=== PATIENT | female | born 1945 | race Caucasian/White ===

== ENCOUNTER 2018-05-08 06:35 | Day surgery (SDC) | payer MEDICARE, SELFPAY ==
[2018-05-08] MEDS: PROPARACAINE 0.5% OPHTH SOL 2 DROPS EYE-OP (07:52)
[2018-05-08 07:56] VITALS: BP 163/78; PULSE 73; RESP 16; TEMP 35.9; O2SAT 99
[2018-05-08 07:57] VITALS: BMI 28.5
[2018-05-08] MEDS: CATARACT EYE COMPOUND (10 DROPS/SYRINGE) 3 DROPS EYE-OP (07:57)
--- NOTE | 2018-05-08 08:53 | PM.PREOP ---
Pre-operative Note Interval Note History & Physical reviewed/Exam performed by Physician: No Changes to H&P: No
--- NOTE | 2018-05-08 08:53 | PM.OP.1 ---
Operative Date/Time/Diagnoses Pre-op diagnosis: Nuclear cataract right eye Procedure & Clinicians Procedure: Cataract Surgery Same procedure as scheduled: Yes Surgeon: Peter Celestin Anesthesia Type: MAC +/- and Sedation Operative Notes Procedure in detail: Patient brought to the operating suite. Tetracaine drops placed in the right eye. Patient was prepped and draped in sterile manner. Wire lid speculum was placed in the eye. Betadine drops were placed on the eye. This was irrigated. Lidocaine jelly was placed on the eye. A paracentesis port was created with a side-port blade. 0.1 mL 1% preservative free lidocaine was injected into the anterior chamber. The anterior chamber was deepened with viscoelastic. 2.6 mm keratome was used to create a temporal clear corneal incision. Cystotome and Utrata forceps were used to create continuous tear capsulorrhexis. Balanced salt solution was used to hydro dissect the nucleus. The phacoemulsification handpiece was inserted and the nucleus was removed using the stop and chop technique. The irrigation aspiration handpiece was inserted and the remaining cortex was removed. Anterior chamber was deepened with viscoelastic. An Freedman ZCB00 intraocular lens with a power of 16.5 was injected into the capsular bag. Irrigation aspiration handpiece was inserted and the remaining viscoelastic was removed. Incision was hydrated with balanced salt solution and found to be leak free with pressure with Weck-Nataly sponges. 0.1 mL Vigamox injected anterior chamber. 0.3 mL Kenalog 10 mg was injected subconjunctivally. Lid speculum was removed. The patient left the operating room in excellent condition. Complications: none Condition: stable Disposition: same day surgery
[2018-05-08] MEDS: MOXIFLOXACIN OPHTH DROPS 3 ML BOTTLE 2 DROPS INJ (09:09)
[2018-05-08] MEDS: TRIAMCINOLONE 50 MG/5 ML VIAL INJ (09:09)
[2018-05-08] MEDS: PHENYLEPHRINE/LIDOCAINE VIAL (OR) 0.2 ML EYE-OP (09:09)
[2018-05-08] MEDS: CHONDROIDTIN/SOD HYALURONATE 1.05 ML SYRINGE INTRAOCULA (09:10)
[2018-05-08] MEDS: LIDOCAINE JELLY 2% 5 ML 1 APPLIC TOP (09:10)
[2018-05-08] MEDS: TETRACAINE 0.5% OPHTH DROPS 4 ML 2 DROPS EYE-OP (09:10)
[2018-05-08] MEDS: BALANCED SALT IRRIG SOLN NO.2 500 ML, EPINEPHrine 1 MG IRR (09:10)
[2018-05-08 09:30] VITALS: BP 153/74; PULSE 68; RESP 16; TEMP 36.4; O2SAT 100
== END 2018-05-08 09:35 | disposition home or self-care (01) ==
PROVIDERS: PCP Internal Medicine; Visit Provider Ophthalmology
DX: H25.11 Age-related nuclear cataract, right eye (principal)
CPT/HCPCS: J0171; J2250; J3010; J3301

== ENCOUNTER 2018-06-05 11:29 | Day surgery (SDC) | payer MEDICARE, SELFPAY ==
[2018-06-05] MEDS: PROPARACAINE 0.5% OPHTH SOL 2 DROPS EYE-OP (12:36)
[2018-06-05 12:37] VITALS: BMI 28.4
[2018-06-05] MEDS: CATARACT EYE COMPOUND (10 DROPS/SYRINGE) 3 DROPS EYE-OP (12:43)
[2018-06-05 12:50] VITALS: BP 143/77; PULSE 69; RESP 16; TEMP 36.8; O2SAT 99
--- NOTE | 2018-06-05 13:17 | PM.PREOP ---
Pre-operative Note Interval Note History & Physical reviewed/Exam performed by Physician: No Changes to H&P: No
--- NOTE | 2018-06-05 13:18 | PM.OP.1 ---
Operative Date/Time/Diagnoses Pre-op diagnosis: Nuclear Cataract Left eye Post-op diagnosis: same Procedure & Clinicians Surgeon: Peter Celestin Anesthesia Type: MAC +/- and Sedation Operative Notes Procedure in detail: Patient brought to the operating suite. Tetracaine drops placed in the left eye. Patient was prepped and draped in sterile manner. Wire lid speculum was placed in the eye. Betadine drops were placed on the eye. This was irrigated. Lidocaine jelly was placed on the eye. A paracentesis port was created with a side-port blade. 0.1 mL 1% preservative free lidocaine was injected into the anterior chamber. The anterior chamber was deepened with viscoelastic. 2.6 mm keratome was used to create a temporal clear corneal incision. Cystotome and Utrata forceps were used to create continuous tear capsulorrhexis. Balanced salt solution was used to hydro dissect the nucleus. The phacoemulsification handpiece was inserted and the nucleus was removed using the stop and chop technique. The irrigation aspiration handpiece was inserted and the remaining cortex was removed. Anterior chamber was deepened with viscoelastic. An Freedman ZCB00 intraocular lens with a power of 17.5 was injected into the capsular bag. Irrigation aspiration handpiece was inserted and the remaining viscoelastic was removed. Incision was hydrated with balanced salt solution and found to be leak free with pressure with Weck-Nataly sponges. 0.1 mL Vigamox injected anterior chamber. 0.3 mL Kenalog 10 mg was injected subconjunctivally. Lid speculum was removed. The patient left the operating room in excellent condition. Complications: none Condition: stable Disposition: same day surgery
[2018-06-05] MEDS: LIDOCAINE JELLY 2% 5 ML 1 APPLIC TOP (13:35)
[2018-06-05] MEDS: MOXIFLOXACIN OPHTH DROPS 3 ML BOTTLE 2 DROPS INJ (13:35)
[2018-06-05] MEDS: CHONDROIDTIN/SOD HYALURONATE 1.05 ML SYRINGE INTRAOCULA (13:35)
[2018-06-05] MEDS: TETRACAINE 0.5% OPHTH DROPS 4 ML 2 DROPS EYE-OP (13:36)
[2018-06-05] MEDS: PHENYLEPHRINE/LIDOCAINE VIAL (OR) 0.2 ML EYE-OP (13:36)
[2018-06-05] MEDS: TRIAMCINOLONE 50 MG/5 ML VIAL INJ (13:36)
[2018-06-05] MEDS: BALANCED SALT IRRIG SOLN NO.2 500 ML, EPINEPHrine 1 MG IRR (13:37)
[2018-06-05 13:45] VITALS: BP 129/76; PULSE 74; RESP 20; TEMP 36.6; O2SAT 100
== END 2018-06-05 14:00 | disposition home or self-care (01) ==
LOC: OR 11:31
PROVIDERS: PCP Internal Medicine; Visit Provider Ophthalmology
DX: H25.12 Age-related nuclear cataract, left eye (principal)
CPT/HCPCS: J0171; J2250; J3301

== ENCOUNTER → 2018-06-29 08:50 | Outpatient (CLI) | payer MEDICARE, SELFPAY ==
[2018-06-29 10:29] LABS: Alanine Aminotransferase 22 IU/L (9-52); Albumin 4.1 g/dL (3.5-5.0); Albumin Globulin Ratio 1.8 (1.0-2.8); Alkaline Phosphatase 91 U/L (38-126); Aspartate Aminotransferase 16 IU/L (14-36); BUN Creatinine Ratio 28.8 (6-22); Bilirubin Total 0.3 mg/dL (0.2-1.3); Blood Urea Nitrogen 23 mg/dL (7-17); Calcium 9.9 mg/dL (8.4-10.2); Carbon Dioxide 29 mmol/L (22-32); Chloride 104 mmol/L (98-107); Cholesterol 139 mg/dL (140-199); Estimated Glomerular Filt Rate > 60.0 mL/min (>60); Globulin 2.3 g/dL (1.7-4.1); Glucose 76 mg/dL (80-110); HDL Cholesterol 59 mg/dL (40-60); HEMOLYSIS < 15 (0-50); LDL Cholesterol Calculated 67 mg/dL (<100); Potassium 4.8 mmol/L (3.4-5.1); Sodium 141 mmol/L (137-145); Total Protein 6.4 g/dL (6.3-8.2); Triglycerides 63 mg/dL (35-150)
== END ==
PROVIDERS: PCP Internal Medicine; Visit Provider Internal Medicine
DX: E78.5 Hyperlipidemia, unspecified (principal); I10 Essential (primary) hypertension
CPT/HCPCS: 36415; 80053; 80061

== ENCOUNTER 2019-01-13 13:46 | Emergency (ER) | payer MEDICARE, SELFPAY ==
[2019-01-13 14:13] VITALS: BP 118/74; PULSE 78; RESP 16; TEMP 36.1; O2SAT 97; BMI 29.3
--- NOTE | 2019-01-13 14:20 | DI.RAD.S_ITS ---
PROCEDURE: XR ANKLE LT MIN 3V INDICATIONS: pain TECHNIQUE: 3 views of the ankle were acquired. COMPARISON: [facility], , ANKLE 3 VIEWS RIGHT, 08/28/2013, 13:17. FINDINGS: Bones: No acute appearing fractures. However, there is loss of bone along the superolateral talar dome which appears new since 2014 and is likely sequela of interval osteochondral defect with displacement of the involved piece of bone into the joint space. Severe degenerative changes of the tibiotalar joint and subtalar joint are again noted as seen in 2014. Plantar spur is present. Soft tissues: Tibiotalar joint is distended due to the presence of numerous large intra-articular loose bodies. Achilles tendon appears normal. IMPRESSION: No radiographic evidence of acute bony abnormality. Severe degenerative changes of the tibiotalar and subtalar joint with a large osteochondral defect of the superolateral talar dome, likely remote, though new appearing since 2013. Numerous large intra-articular tibiotalar loose bodies. Dictated by: Chris Arzate M.D. on 01/13/2019 at 13:35 Approved by: Chris Arzate M.D. on 01/13/2019 at 13:39
--- NOTE | 2019-01-13 15:56 | PC.NURSE ---
pt reports left leg pain with wt bearings.
--- NOTE | 2019-01-13 19:43 | ED_ITS ---
HPI - Extremity Injury (Lower) <GABY Pizano - Last Filed: 01/13/19 19:49> General Chief Complaint: Extremity Injury, Lower Stated Complaint: severe osteoarthritis in ankles, hurt left ankle Time Seen by Provider: 01/13/19 15:16 Source: patient Mode of arrival: Wheelchair Limitations: no limitations History of Present Illness HPI Narrative: The patient is a 73-year-old female nonsmoker with history of osteoarthritis in her ankles who presents with a chief complaint of left ankle pain that has been worsening over the past few days. She denies any precipitating factors, but states that she had worsening pain and kept ambulating on it yesterday. She states that the pain is on the inside of her ankle. She denies any current redness or swelling. She denies any chest pain shortness of breath fevers nausea vomiting or diarrhea. She has not taken anything for pain at this point. She states that it has been increasingly difficult to bear weight due to the pain. She states she knows she has [id number] arthritis on her left ankle. Related Data Home Medications Medication Instructions Recorded Confirmed quetiapine 25 mg tablet 50 mg PO ONCE HS tab 01/02/19 01/02/19 Previous Rx's Medication Instructions Recorded diazepam 2 mg tablet 2 mg PO .hsp PRN #90 tab 08/01/17 simvastatin 20 mg PO Q DAY #90 tab 06/26/18 Disabled Parking #1 each 07/03/18 mirabegron 25 mg tablet,extended 25 mg PO DAILY #90 tab 07/31/18 release 24 hr diclofenac sodium 100 mg 100 mg PO BID #180 tab 11/15/18 tablet,extended release 24 hr fluoxetine 20 mg capsule 20 mg PO DAILY #10 cap 12/04/18 fluoxetine 20 mg capsule 20 mg PO DAILY #90 cap 12/04/18 Allergies Allergy/AdvReac Type Severity Reaction Status Date / Time adhesive tape Allergy Unknown peeled skin Verified 01/02/19 15:06 Review of Systems <GABY Pizano - Last Filed: 01/13/19 19:49> Review of Systems Narrative: GENERAL: Denies chills, fatigue, malaise, fever, sweats. HEENT: Denies sinus pain, ear pain, sore throat, difficulty swallowing, dizziness. RESPIRATORY: Denies dyspnea, cough, wheezing, hemoptysis, sputum. CARDIOVASCULAR: Denies chest pain, palpitations, orthopnea, edema, GASTROINTESTINAL: Denies nausea, vomiting, abdominal pain, diarrhea, constipation, melena. : Denies dysuria, frequency, incontinence, hematuria, urinary retention. MUSCULOSKELETAL: See HPI SKIN: Denies rash, skin lesions, or other NEUROLOGIC: Denies weakness, headache, numbness, change in speech, confusion, seizures, incoordination. PSYCHIATRIC: No concerning psychosocial issues. 12 point review of systems is negative except for those stated above Patient History <GABY Pizano - Last Filed: 01/13/19 19:49> Medical History Eating disorder (Resolved) Hyperlipidemia (Chronic 05/17/17) Hypertension (Chronic) Major depression (Chronic) Surgical History S/P cataract extraction (Inactive ~04/2018) Family History Child Pancreatitis Father Fam hx-ischem heart disease Social History household members: spouse Smoking Status: Never smoker Family History Child Pancreatitis Father Fam hx-ischem heart disease Social History household members: spouse Smoking Status: Never smoker alcohol intake frequency: holidays/special occasions only Substance Use Type: does not use Exam <GABY Pizano - Last Filed: 01/13/19 19:49> Narrative Exam Narrative: GENERAL: Elderly female sitting on stretcher in no acute distress HEAD: Atraumatic. Normocephalic. No temporal or scalp tenderness. EYES: Pupils equal round and reactive. Extraocular motions intact. No scleral icterus. No injection or drainage. ENT: Nose without bleeding, purulent drainage or septal hematoma. Throat without erythema, tonsillar hypertrophy or exudate. Uvula midline. Airway patent. NECK: Trachea midline. No JVD or lymphadenopathy. Supple, nontender, no meningeal signs. CARDIOVASCULAR: Regular rate and rhythm RESPIRATORY: No cough. No increased respiratory effort. No accessory muscle use. EXTREMITIES: Generalized pain to palpation lateral aspect left ankle. Positive pedal pulses bilaterally. Capillary refill less than 2 seconds bilaterally all toes. Reduced range of motion all bowman. No visual skin abnormality left ankle or foot. BACK: Nontender without deformity or crepitance. No flank tenderness. NEURO: AOx3. SKIN: No rash or erythema visible skin. No erythema ecchymosis warmth or visual abnormality noted on left ankle. Initial Vital Signs Initial Vital Signs: Vital Signs Temperature 97.0 F L 01/13/19 14:13 Pulse Rate 78 01/13/19 14:13 Respiratory Rate 16 01/13/19 14:13 Blood Pressure 118/74 01/13/19 14:13 Pulse Oximetry 97 01/13/19 14:13 <Anum Colón MD - Last Filed: 01/13/19 19:53> Initial Vital Signs Initial Vital Signs: Vital Signs Temperature 97.0 F L 01/13/19 14:13 Pulse Rate 78 01/13/19 14:13 Respiratory Rate 16 01/13/19 14:13 Blood Pressure 118/74 01/13/19 14:13 Pulse Oximetry 97 01/13/19 14:13 Procedures <GABY Pizano - Last Filed: 01/13/19 19:49> Orthopedic Splinting/Casting Injury #1: Side: left Lower Extremity Injury Location: ankle Lower Extremity Immobilizer: boot orthosis Other Orthopedic Equipment: walker Post splinting neuro exam: intact Post splinting vascular exam: intact Placed by: Nursing Scores <GABY Pizano - Last Filed: 01/13/19 19:49> GCS Jacklyn coma scale eye opening: Spontaneous Jacklyn coma scale verbal response: Orientated Jacklyn coma scale motor response: Obey commands Jacklyn coma scale total score: 15 Wells' Criteria for DVT Active Cancer (Treatment within 6 months): No Bedridden recently >3 days or major surgery within 4 weeks: No Calf Swelling >3cm compared to other leg: No Collateral (nonvericose) superficial veins present: No Entire leg swollen: No Localized tenderness along the deep vein system: No Pitting edema, confined to symtomatic leg: No Paralysis, paresis, or recent plaster immobilization of ext: No Previously documented DVT: No Alternative dx to DVT as likely or more likely: No Wells' criteria for DVT: 0 Course <GABY Pizano - Last Filed: 01/13/19 19:49> Orders Ordered: ED Orders 01/13/19 14:20 XR ankle LT min 3V Stat Vital Signs Vital signs: Vital Signs - 8 hr 01/13/19 14:13 Temperature 97.0 F L Pulse Rate 78 Respiratory Rate 16 Blood Pressure 118/74 Pulse Oximetry 97 <Anum Colón MD - Last Filed: 01/13/19 19:53> Orders Ordered: ED Orders 01/13/19 14:20 XR ankle LT min 3V Stat Vital Signs Vital signs: Vital Signs - 8 hr 01/13/19 14:13 Temperature 97.0 F L Pulse Rate 78 Respiratory Rate 16 Blood Pressure 118/74 Pulse Oximetry 97 MDM - Extremity Injury (Lower) <GABY Pizano - Last Filed: 01/13/19 19:49> Imaging Data Ankle x-ray: Radiologist's impression: [address] [address] XRay Report Signed Patient: Cornelia Marx [facility]#: [id number] : 5Acct:[id number] Age/Sex: 73 / FDate of Service: 01/13/19 Loc: ED Accession Number: [id number] Procedure: XR ankle LT min 3V Ordering Provider: Anum Colón MD PROCEDURE: XR ANKLE LT MIN 3V INDICATIONS: pain TECHNIQUE: 3 views of the ankle were acquired. COMPARISON: [facility], , ANKLE 3 VIEWS RIGHT, 08/28/2013, 13:17. FINDINGS: Bones: No acute appearing fractures. However, there is loss of bone along the superolateral talar dome which appears new since 2013 and is likely sequela of interval osteochondral defect with displacement of the involved piece of bone into the joint space. Severe degenerative changes of the tibiotalar joint and subtalar joint are again noted as seen in 2014. Plantar spur is present. Soft tissues: Tibiotalar joint is distended due to the presence of numerous large intra-articular loose bodies. Achilles tendon appears normal. IMPRESSION: No radiographic evidence of acute bony abnormality. Severe degenerative changes of the tibiotalar and subtalar joint with a large osteochondral defect of the superolateral talar dome, likely remote, though new appearing since 2013. Numerous large intra-articular tibiotalar loose bodies. Dictated by: Chris Arzate M.D. on 01/13/2019 at 13:35 Approved by: Chris Arzate M.D. on 01/13/2019 at 13:39 [facility] Narrative Medical decision making narrative: The patient is a 73-year-old female presents with a chief complaint of ankle pain. She has history of osteoarthritis and states she may have ?overdone it the other day. She has negative x-rays for acute findings, but is noted to have large intra-articular tibiotalar loose bodies as well as degenerative changes. She has no signs of cellulitis or blood clot. She has no systemic symptoms. I discussed at length the importance of follow-up with primary care provider. She was placed in a boot given a walker and was able to ambulate steadily with a combination of the 2. I discussed at length coming back to the emergency department for any acute findings such as concern for DVT or sinusitis. Patient has no questions or concerns and states understanding of return precautions as well as plan of care. Discharge Plan Departure Patient Disposition: Home Clinical Impression: Acute ankle pain Qualifiers: Laterality: left Qualified Code(s): M25.572 - Pain in left ankle and joints of left foot Discharge Date/Time: 01/13/19 16:26 Instructions: How To Perform RICE (Rest, Ice, Compress, Elevate), DI for Ankle Pain Activity Restrictions/Additional Instructions: Your x-ray shows no acute fractures, but shows severe degenerative changes and intra-articular loose bodies. We have placed you in a boot for comfort, and this has decreased your pain and increased your stability. We have also offered you a walker. Please monitor for redness, warmth, fevers signs of infection etc. Please come back to the emergency department for any acute concerns. Please follow up with primary care provider in the next few days. Prescriptions: No Action quetiapine 25 mg tablet 50 mg PO ONCE HS RF: 0 fluoxetine [Prozac] 20 mg capsule 20 mg PO DAILY Qty: 10 RF: 0 fluoxetine [Prozac] 20 mg capsule 20 mg PO DAILY Qty: 90 RF: 3 diazepam 2 mg tablet 2 mg PO .hsp PRN (Reason: anxiety) Qty: 90 RF: 1 simvastatin 20 mg tablet 20 mg PO Q DAY Qty: 90 RF: 3 Myrbetriq 25 mg tablet extended release 24 hr 25 mg PO DAILY Qty: 90 RF: 3 diclofenac sodium 100 mg tablet extended release 24 hr 100 mg PO BID Qty: 180 RF: 3 (DME) Disabled Parking Qty: 1 RF: 0 Referrals: Hay Cary MD [Primary Care Provider] -
== END 2019-01-13 16:26 | disposition home or self-care (01) ==
PROVIDERS: Emergency Provider Nurse Practitioner Family; PCP Internal Medicine
DX: M25.572 Pain in left ankle and joints of left foot (principal); M19.079 Primary osteoarthritis, unspecified ankle and foot
CPT/HCPCS: 29580; 73610; 99282; 99283

== ENCOUNTER → 2019-08-09 11:02 | Outpatient (CLI) | payer MEDICARE, SELFPAY ==
[2019-08-09 12:18] LABS: Alanine Aminotransferase 14 IU/L (<35); Albumin Globulin Ratio 1.6 (1.0-2.8); Alkaline Phosphatase 117 U/L (38-126); Aspartate Aminotransferase 24 IU/L (14-36); BUN Creatinine Ratio 21.9 (6-22); Bilirubin Total 0.4 mg/dL (0.2-1.3); Blood Urea Nitrogen 14 mg/dL (7-17); Calcium 9.6 mg/dL (8.4-10.2); Carbon Dioxide 29 mmol/L (22-32); Chloride 103 mmol/L (98-107); Cholesterol 150 mg/dL (140-199); Estimated Glomerular Filt Rate > 60.0 mL/min (>60); Globulin 2.5 g/dL (1.7-4.1); Glucose 96 mg/dL (80-110); HDL Cholesterol 58 mg/dL (40-60); HEMOLYSIS < 15 (0-50); LDL Cholesterol Calculated 73 mg/dL (<100); Potassium 4.2 mmol/L (3.4-5.1); Sodium 139 mmol/L (137-145); Total Protein 6.5 g/dL (6.3-8.2); Triglycerides 96 mg/dL (35-150)
== END ==
PROVIDERS: PCP Internal Medicine; Referring Provider Internal Medicine; Visit Provider Internal Medicine
DX: I10 Essential (primary) hypertension (principal); E78.5 Hyperlipidemia, unspecified; Z79.899 Other long term (current) drug therapy
CPT/HCPCS: 36415; 80053; 80061; 84443

== ENCOUNTER → 2019-12-11 11:19 | Outpatient (CLI) | payer MEDICARE, SELFPAY ==
--- NOTE | 2019-12-11 11:20 | DI.RAD.S_ITS ---
PROCEDURE: XR FINGER RT MIN 2V INDICATIONS: R FINGER PAIN TECHNIQUE: AP hand, 2 views of the 4th digit acquired. COMPARISON: None. FINDINGS: Bones: There is a small avulsion fragment dorsal to the 4th proximal interphalangeal joint likely originating from the base of the middle phalanx. No other fracture or dislocation. Visualized osseous structures appear osteopenic. There is severe degeneration at the 1st carpometacarpal joint and moderate degeneration at the triscaphe articulation. There is also mild degeneration of the distal interphalangeal joints. Soft tissues: There is mild periarticular soft tissue swelling most prominent dorsally at the 4th proximal phalangeal joint. IMPRESSION: 1. Small ossicle dorsal to the 4th PIP joint with associated soft tissue swelling suggestive of a small avulsion fracture. 2. Osteoarthritic changes of the hand as described including severe degeneration at the 1st carpometacarpal joint. Dictated by: Messi Kaye M.D. on 12/11/2019 at 11:57 Approved by: Messi Kaye M.D. on 12/11/2019 at 12:00
== END ==
PROVIDERS: PCP Internal Medicine; Referring Provider Physician Assistant; Visit Provider Physician Assistant
DX: M79.644 Pain in right finger(s) (principal); M18.11 Unilateral primary osteoarthritis of first carpometacarpal joint, right hand; M19.041 Primary osteoarthritis, right hand; M79.89 Other specified soft tissue disorders
CPT/HCPCS: 73140

== ENCOUNTER 2019-12-13 08:48 | Emergency (ER) | payer MEDICARE, SELFPAY ==
[2019-12-13 08:53] VITALS: BP 179/107; PULSE 72; RESP 12; TEMP 36.6; O2SAT 98; BMI 29.7
--- NOTE | 2019-12-13 09:01 | ED.WOUNDLAC ---
HPI - Wound/Laceration General Chief Complaint: Wound/Laceration Stated Complaint: finger on right hand infected Time Seen by Provider: 12/13/19 08:54 Source: patient Mode of arrival: Ambulatory Limitations: no limitations History of Present Illness HPI narrative: Patient is 74-year-old female who presents with about 1 week to 10 days of redness the distal end of her right ring finger. She has had a recurrent sore over the last 10 years however now the entire and of her he D IP is erythematous. She has tried poking it with a pin she got some pus out. She was seen at the walk-in clinic 2 days ago she was placed on Keflex she has had 5 doses total of Keflex. Last night she had some aching in her MCP along her finger this morning she woke up and noticed erythema down to her PIP however that erythema has resolved on my examination. She has no fevers she is able to flex and extend finger completely. She has no streaking. X-ray from the does show questionable of avulsion fracture and arthritic changes. Related Data Home Medications Medication Instructions Recorded Confirmed multivitamin 1 cap PO DAILY 04/01/19 12/11/19 Previous Rx's Medication Instructions Recorded Disabled Parking #1 each 07/03/18 diazepam 2 mg tablet 2 mg PO .hsp PRN #90 tab 05/21/19 simvastatin 20 mg tablet 20 mg PO Q DAY #90 tab 07/10/19 bupropion HCl 150 mg 24 hr tablet, 150 mg PO QAM #90 tab 08/08/19 extended release diclofenac sodium 100 mg 100 mg PO BID #180 tab 11/12/19 tablet,extended release 24 hr olmesartan 20 mg tablet 20 mg PO DAILY #90 tab 11/25/19 cephalexin 500 mg capsule 500 mg PO TID 10 Days #30 cap 12/11/19 doxycycline hyclate 100 mg PO BID #14 cap 12/13/19 Allergies Allergy/AdvReac Type Severity Reaction Status Date / Time adhesive tape Allergy Unknown peeled skin Verified 12/13/19 08:57 Review of Systems Review of Systems Narrative: GENERAL: Denies chills,fever HEENT: Denies throat pain RESPIRATORY: Denies dyspnea, cough, wheezing CARDIOVASCULAR: Denies chest pain, palpitations GASTROINTESTINAL: Denies nausea, vomiting MUSCULOSKELETAL: Denies extremity pain, injury SKIN: See HPI NEUROLOGIC: Denies weakness, dizziness, headache, numbness 8 point review of systems is negative except for those stated above and HPI Patient History Medical History Eating disorder (Resolved) Hyperlipidemia (Chronic 05/17/17) Hypertension (Chronic) Major depression (Chronic) Osteoarthritis of ankles, bilateral (Chronic) Surgical History S/P cataract extraction (Inactive ~04/2018) Family History Child Pancreatitis Father Fam hx-ischem heart disease Social History household members: spouse Smoking Status: Never smoker Smoking Status: Never smoker alcohol intake frequency: holidays/special occasions only Substance Use Type: does not use Exam Initial Vital Signs Initial Vital Signs: Vital Signs Temperature 97.8 F 12/13/19 08:53 Pulse Rate 72 12/13/19 08:53 Respiratory Rate 12 12/13/19 08:53 Blood Pressure 179/107 H 12/13/19 08:53 Pulse Oximetry 98 12/13/19 08:53 GENERAL: Well-appearing, well-nourished and in no acute distress. CARDIOVASCULAR: peripheral pulses in tact, cap refill <2 sec RESPIRATORY: No respiratory distress, speaks in full sentences without difficulty EXTREMITIES: Normal range of motion, no clubbing or edema. Neurovascularly intact NEUROLOGICAL: Cranial nerves II through XII grossly intact. Normal gait and speech. SKIN: Small pustule noted at the distal end of right ring finger over the D IP. No drainage minimal fluctuation no induration erythema is localized around the D IP it does not extend to the PIP there is no streaking patient able to flex and extend finger it is mildly painful to touch. Course Vital Signs Vital signs: Vital Signs - 8 hr 12/13/19 08:53 Temperature 97.8 F Pulse Rate 72 Respiratory Rate 12 Blood Pressure 179/107 H Pulse Oximetry 98 MDM - Wound/Laceration MDM Narrative Medical decision making narrative: At this time no sign of flexor tenosynovitis no sign of osteo myelitis. At this time recommend warm soaks and switch antibiotics. Discharge Plan Departure Patient Disposition: Home Clinical Impression: Cellulitis of right ring finger Instructions: DI for Cellulitis -- Adult Activity Restrictions/Additional Instructions: *You have been diagnosed with right ring finger cellulitis *What to do: At this time I recommend warm soaks 1 to 2 times a day for 10 or 20 minutes. Monitor closely for worsening redness. *Continue to take medications as directed Stop taking Keflex Start taking Bactrim 100 mg twice a day for 7 days--> [facility] [place] [facility] *Follow up with your primary care provider in 2-3 days *Return to ER if you should have increasing redness, inability to bend finger, streaking up the hand fever [or] any new, worsening or concerning symptoms Prescriptions: New doxycycline hyclate 100 mg capsule 100 mg PO BID Qty: 14 RF: 0 No Action cephalexin 500 mg capsule 500 mg PO TID 10 Days Qty: 30 RF: 0 multivitamin Capsule 1 cap PO DAILY RF: 0 bupropion HCl 150 mg tablet extended release 24 hr 150 mg PO QAM Qty: 90 RF: 3 simvastatin 20 mg tablet 20 mg PO Q DAY Qty: 90 RF: 3 diclofenac sodium 100 mg tablet extended release 24 hr 100 mg PO BID Qty: 180 RF: 3 olmesartan 20 mg tablet 20 mg PO DAILY Qty: 90 RF: 3 (DME) Disabled Parking Qty: 1 RF: 0 diazepam 2 mg tablet 2 mg PO .hsp PRN (Reason: anxiety) Qty: 90 RF: 1 Referrals: Hay Cary MD [Primary Care Provider] -
--- NOTE | 2019-12-13 09:01 | PC.NURSE ---
Pain, redness and swelling to right ring finger. Started Monday. Denies fevers or chills. Small dark head noted to area of finger. Denies drainage.
== END 2019-12-13 09:31 | disposition home or self-care (01) ==
PROVIDERS: Emergency Provider Emergency Medicine; PCP Internal Medicine
DX: L03.011 Cellulitis of right finger (principal)
CPT/HCPCS: 99281

== ENCOUNTER 2020-02-20 02:08 | Emergency (ER) | payer MEDICARE, SELFPAY ==
[2020-02-20 02:17] VITALS: BP 136/82; PULSE 83; RESP 16; TEMP 36.8; O2SAT 96; BMI 28.5
--- NOTE | 2020-02-20 02:18 | ED.GENADULT ---
HPI - General Adult General Chief complaint: Extremity Problem,Nontraumatic Stated complaint: PAINFUL SPOT ON LEFT ELBOW X2 DAYS Time Seen by Provider: 02/20/20 02:18 History of Present Illness HPI narrative: 74-year-old woman with a history of hypertension, hyperlipidemia and osteoarthritis presents with 2 days of increasing pain and swelling over her left elbow. She denies specific trauma. There is no specific redness or cellulitis. She has not been doing any new or different activity and denies fevers or chills. Related Data Home Medications Medication Instructions Recorded Confirmed multivitamin 1 cap PO DAILY 04/01/19 01/13/20 lisinopril 20 mg tablet 20 mg PO DAILY tab 01/13/20 01/13/20 Previous Rx's Medication Instructions Recorded Disabled Parking #1 each 07/03/18 diazepam 2 mg tablet 2 mg PO .hsp PRN #90 tab 05/21/19 simvastatin 20 mg tablet 20 mg PO Q DAY #90 tab 07/10/19 bupropion HCl 150 mg 24 hr tablet, 150 mg PO QAM #90 tab 08/08/19 extended release diclofenac sodium 100 mg 100 mg PO BID #180 tab 11/12/19 tablet,extended release 24 hr oxycodone-acetaminophen 1 tab PO Q6H PRN #10 tab 02/20/20 Allergies Allergy/AdvReac Type Severity Reaction Status Date / Time adhesive tape Allergy Unknown peeled skin Verified 02/20/20 02:39 lisinopril AdvReac Intermediate cough Verified 02/20/20 02:39 Review of Systems Review of Systems Narrative: Pertinent positive and negative findings as per HPI Remainder of review of systems is otherwise unremarkable for Constitutional: weakness ENT: No sore throat, neck pain, ear pain CV: Chest pain, palpitations, dyspnea on exertion Respiratory: Cough, wheeze, dyspnea GI: Nausea, vomiting, diarrhea, change in bowel habits, black or bloody stools : Dysuria, hematuria, flank pain MS: Muscle weakness, numbness, Patient History Medical History Eating disorder Hyperlipidemia (05/17/17) Hypertension Major depression Osteoarthritis of ankles, bilateral Raynauds phenomenon Surgical History S/P cataract extraction (~04/2018) Family History Child Pancreatitis Father Fam hx-ischem heart disease Social History household members: spouse Smoking Status: Never smoker Smoking Status: Never smoker alcohol intake frequency: holidays/special occasions only Substance Use Type: does not use Exam Narrative Exam Narrative: General: Alert appropriate in no acute distress Respiratory: Able to speak in full sentences, no obvious respiratory distress, lungs are clear to auscultation Cardiac exam: Regular rate and rhythm no murmurs Skin: No obvious rashes, warm and dry Extremities: Active synovitis right hand 4th finger DIP joint. Left elbow with bursal fullness that is not tense nor red nor warm to the touch. Full range of motion at the elbow. No axillary adenopathy. Neurovascularly intact distal. Psych, appropriate insight and affect, cooperative Initial Vital Signs Initial Vital Signs: Vital Signs Temperature 98.2 F 02/20/20 02:17 Pulse Rate 83 02/20/20 02:17 Respiratory Rate 16 02/20/20 02:17 Blood Pressure 136/82 02/20/20 02:17 Pulse Oximetry 96 02/20/20 02:17 Course Orders Ordered: Discontinued Medications Oxycodone/Acetaminophen (Oxycodone/Acetaminophen 5/325 Tablet) 1 tab PO NOW ONE Stop: 02/20/20 02:40 Oxycodone/Acetaminophen (Oxycodone/Apap 5/325 Prepack) 1 bottle MISC SEEINSTR ONE Stop: 02/20/20 02:40 Vital Signs Vital signs: Vital Signs - 8 hr 02/20/20 02:17 Temperature 98.2 F Pulse Rate 83 Respiratory Rate 16 Blood Pressure 136/82 Pulse Oximetry 96 Medical Decision Making Medical Records Medical records reviewed: Yes I reviewed the patient's medical records. MDM Narrative Medical decision making narrative: 74-year-old woman with a left-sided olecranon bursitis. No evidence of infection or trauma at this point. She has not had prior episodes of gout and currently does have diclofenac at home to use for her osteoarthritis of various joints. Will ask her to go back to the diclofenac that she has not taken for the last week or so and will add Percocet for severe pain such as she has experienced this evening. Will ask her follow-up with her primary care physician in about a week to make sure that she truly is improving or see if additional referral will be appropriate. Encouraged to return to the emergency department with any signs or symptoms of infection she is safe for home discharge Discharge Plan Departure Patient Disposition: Home Clinical Impression: Bursitis, olecranon Qualifiers: Laterality: left Qualified Code(s): M70.22 - Olecranon bursitis, left elbow Instructions: DI for Elbow Bursitis Activity Restrictions/Additional Instructions: Thank you for coming in tonight. It is so frustrating when your hurting so much. Please go back to taking your 100 mg of diclofenac morning and night while your elbow is as inflamed as it currently is. You can add 1 Percocet every 6 hours for pain not controlled by the diclofenac. Any time that you take a narcotic pain pill you will have difficulties with constipation. Please make sure that you are adding either a stool softener or extra fiber to your diet to avoid this side effect. At this time, there is not any suggestion of infection. If the area becomes more swollen, more tense, red or you have redness extending from it then we certainly need to re-evaluate and might need to collect some of the fluid to figure out how to best treat this. Use the sling for comfort. Please schedule follow-up appointment for this elbow bursitis with Dr. Cary in about a week. It is not improved by then he may have other suggestions for further workup. I hope you feel better and are able to get some sleep this evening. Prescriptions: New oxycodone-acetaminophen 5-325 mg tablet 1 tab PO Q6H PRN (Reason: pain) Qty: 10 RF: 0 No Action multivitamin Capsule 1 cap PO DAILY RF: 0 bupropion HCl 150 mg tablet extended release 24 hr 150 mg PO QAM Qty: 90 RF: 3 simvastatin 20 mg tablet 20 mg PO Q DAY Qty: 90 RF: 3 diclofenac sodium 100 mg tablet extended release 24 hr 100 mg PO BID Qty: 180 RF: 3 lisinopril 20 mg tablet 20 mg PO DAILY RF: 0 (DME) Disabled Parking Qty: 1 RF: 0 diazepam 2 mg tablet 2 mg PO .hsp PRN (Reason: anxiety) Qty: 90 RF: 1 Referrals: Hay Cary MD [Primary Care Provider] -
[2020-02-20] MEDS: OXYCODONE/APAP 5/325 PREPACK 1 BOTTLE MISC (02:47)
[2020-02-20] MEDS: OXYCODONE/ACETAMINOPHEN 5/325 TABLET 1 TAB PO (02:47)
== END 2020-02-20 02:59 | disposition home or self-care (01) ==
PROVIDERS: Emergency Provider Emergency Medicine; PCP Internal Medicine
DX: M70.22 Olecranon bursitis, left elbow (principal); I10 Essential (primary) hypertension; E78.5 Hyperlipidemia, unspecified
CPT/HCPCS: 99281; 99283

== ENCOUNTER → 2020-05-07 14:10 | Outpatient (CLI) | payer MEDICARE, SELFPAY ==
[2020-05-07 14:58] LABS: Add Manual Diff / Slide Review NO; Basophils Absolute Auto 100 /uL (0-100); Basophils Percent Auto 0.7 % (0-2); Eosinophils Absolute Auto 300 /uL (0-450); Hematocrit 30.6 % (36-46); Hemoglobin 9.8 g/dL (12.0-16.0); Lymphocytes Absolute Auto 1100 /uL (1100-4500); Lymphocytes Percent Auto 13.9 % (25-40); Mean Corpuscular HGB Conc 32.1 % (30-36); Mean Corpuscular Hemoglobin 29.8 PG (26-34); Mean Corpuscular Volume 92.7 fL (80-100); Monocytes Absolute Auto 500 /uL (0-900); Monocytes Percent Auto 6.4 % (3-14); Neutrophils Absolute Auto 5900 /uL (1500-7000); Platelet Count 448 X10^3/uL (150-400); Red Cell Distribution Width 13.9 % (11.6-14.8); White Blood Cell Count 7.8 X10^3/uL (4.5-11.0)
[2020-05-07 15:18] LABS: Alanine Aminotransferase 11 IU/L (<35); Albumin 3.4 g/dL (3.5-5.0); Albumin Globulin Ratio 1.4 (1.0-2.8); Alkaline Phosphatase 134 U/L (38-126); Aspartate Aminotransferase 17 IU/L (14-36); BUN Creatinine Ratio 12.3 (6-22); Bilirubin Total 0.3 mg/dL (0.2-1.3); Blood Urea Nitrogen 16 mg/dL (7-17); Calcium 9.3 mg/dL (8.4-10.2); Carbon Dioxide 28 mmol/L (22-32); Chloride 104 mmol/L (98-107); Estimated Glomerular Filt Rate 39.9 mL/min (>60); Globulin 2.5 g/dL (1.7-4.1); Glucose 176 mg/dL (80-110); HEMOLYSIS < 15 (0-50); Potassium 4.3 mmol/L (3.4-5.1); Sodium 138 mmol/L (137-145); Total Protein 5.9 g/dL (6.3-8.2); Uric Acid 4.1 mg/dL (2.5-6.2)
[2020-05-07 15:22] LABS: Erythrocyte Sedimentation Rate 62 MM/HR (0-20)
== END ==
PROVIDERS: PCP Internal Medicine; Referring Provider Orthopaedic Surgery; Visit Provider Orthopaedic Surgery
DX: Z01.812 Encounter for preprocedural laboratory examination (principal); E79.0 Hyperuricemia without signs of inflammatory arthritis and tophaceous disease
CPT/HCPCS: 36415; 80053; 84550; 85025; 85651

== ENCOUNTER → 2020-05-11 14:37 | Outpatient (CLI) | payer MEDICARE, SELFPAY ==
[2020-05-11 15:42] LABS: COVID19 -Nasal RAPID Negative (Negative)
== END ==
PROVIDERS: PCP Internal Medicine; Visit Provider Nurse Practitioner
DX: Z01.812 Encounter for preprocedural laboratory examination (principal); Z20.822 Contact with and (suspected) exposure to COVID-19
CPT/HCPCS: 87635; C9803

== ENCOUNTER 2020-05-12 10:32 | Day surgery (SDC) | payer MEDICARE, SELFPAY ==
[2020-05-12] VITALS (9 sets, daily range): BP systolic 125–150; BP diastolic 67–77; PULSE 64–75; RESP 10–18; TEMP 36.4–37.1; O2SAT 96–100; BMI 25.9
[2020-05-12] MEDS: LACTATED RINGERS 1,000 ML 42 ML IV (11:39)
--- NOTE | 2020-05-12 13:02 | P.OP_ITS ---
Operative Date/Time/Diagnoses Date of procedure: 05/12/20 Time of procedure: 13:10 Pre-op diagnosis: septic left olecranon bursitis Post-op diagnosis: same Procedure & Clinicians Procedure: left olecranon bursectomy Same procedure as scheduled: Yes Indications: this is a 74-year-old female who has a several month history of a severely painful abscess on her left elbow has seen her primary care doctor room multiple times and has been on several different courses antibiotics. She presented to my office with an inflamed olecranon bursa which was actively draining and cultures are positive for Staph aureus. She is brought to the operating room for an olecranon bursectomy. Surgeon: Eve Kirkpatrick Click Yes if Unassisted: Yes Anesthesia Type: General Operative Notes Findings: infected left olecranon bursa Closure Type: primary Specimen(s): other ( bursa for cultures) Estimated Blood Loss (mL): 50 Blood products transfused: none Tourniquet time (min): 0 Procedure in detail: Patient is brought to the operating room she underwent the Gent and induction of a general anesthesia. Her left upper extremities prepped draped standard sterile fashion. antibiotics were given. A time-out was performed. The left upper extremities prepped draped standard sterile fashion. High arm tourniquet was applied and elevated to 250 mm. She had an infected left olecranon bursa with that a 1 cm pointing mass with grossly abn ormal skin. The mass including part of the olecranon bursa grossly abnormal skin and underlying subcutaneous tissues were carefully excised. There was a track down deep in the olecranon bursal region. A rongeur was used to meticulously debride the septic olecranon bursa. Cultures of the tissue were sent to the lab. The wound was meticulously irrigated with dilute antibiotic irrigation. A deep drain was placed and taken out laterally. The wound was closed with interrupted nylon. The skin was gently mobilized in order to allow coverage and closure of the gap. The wound was dressed sterilely. Complications: none Post-operative Condition: stable Disposition: Acute Care Plan for aftercare: continue with antibiotics. Return to clinic Tomorrow for drain removal and in 2 weeks for suture removal. May need to be evaluated at the [facility]. Follow-up with primary care doctor for multiple healthcare concerns including weight loss, poor appetite an abnormal labs.
--- NOTE | 2020-05-12 13:02 | PM.PREOP ---
Pre-operative Note COVID-19 COVID-19 status: Negative Interval Note History & Physical reviewed/Exam performed by Physician: Yes Changes to H&P: No
[2020-05-12] MEDS: CEFAZOLIN 2 GM/100 ML FROZ.PIGGY IV (13:04)
[2020-05-12] MEDS: VANCOMYCIN 1,000 MG/200 ML PIGGYBACK 200 MG IV (13:20)
[2020-05-12] MEDS: BUPIVACAINE 0.5% (PF) VIAL 30 ML INJ (13:25)
--- NOTE | 2020-05-12 13:31 | SUR.OPER ---
Supine on padded OR bed, head on pillow, right arm secured on padded arm boards at <90 degrees abduction, left arm draped free on black arm tadle, legs uncrossed, safety belt at thigh, tape over blanket over lower legs.
[2020-05-12] MEDS: SODIUM CHLORIDE 0.9% 1,000 ML, GENTAMICIN 80 MG IRR (13:53)
[2020-05-12] MEDS: BACITRACIN OINT 0.9 GM PCKT 1 APPLIC TOP (13:53)
[2020-05-12] MEDS: fentaNYL 100 MCG/2 ML INJ IV ×2 (13:59→14:10)
[2020-05-12] MEDS: OXYCODONE/ACETAMINOPHEN 5/325 TABLET 1 TAB PO (14:13)
--- NOTE | 2020-05-12 15:27 | SUR.PHASEII ---
Vacutainer on TLS changed prior to discharge. Scant amt serosangenous drng.
== END 2020-05-12 15:27 | disposition home or self-care (01) ==
PROVIDERS: PCP Internal Medicine; Referring Provider Orthopaedic Surgery; Visit Provider Orthopaedic Surgery
PROC: (CPT 24105; principal; 2020-05-12 13:15)
DX: M71.122 Other infective bursitis, left elbow (principal); I73.00 Raynaud's syndrome without gangrene
CPT/HCPCS: 24105; 87070; 87075; 87077; 87147; 87186; 87205; J0690; J1100; J2405; J2704; J3010

== ENCOUNTER → 2020-05-15 11:29 | Outpatient (CLI) | payer MEDICARE, SELFPAY ==
[2020-05-15 12:36] LABS: Erythrocyte Sedimentation Rate 40 MM/HR (0-20)
[2020-05-15 13:16] LABS: Lactate Dehydrogenase 379 U/L (313-618)
[2020-05-15 13:27] LABS: HEMOLYSIS < 15 (0-50); Iron 31 ug/dL (37-170)
[2020-05-15 13:38] LABS: Percent Iron Saturation 11 % (15-50); Total Iron Binding Capacity 291 ug/dL (265-497); Transferrin 220 mg/dL (206-381)
[2020-05-15 14:02] LABS: Ferritin 57 ng/mL (11-264)
[2020-05-15 14:33] LABS: Folate > 20.0 ng/mL (2.76-20.0); Vitamin B12 830 pg/mL (239-931)
[2020-05-16 05:05] LABS: Haptoglobin 282 mg/dL (42-346)
[2020-05-16 16:24] LABS: Erythropoietin 15.9 mIU/mL (2.6-18.5)
[2020-05-18 14:05] LABS: Albumin 3.2 g/dL (2.9-4.4); Alpha-1-Globulin 0.4 g/dL (0.0-0.4); Alpha-2-Globulin 0.9 g/dL (0.4-1.0); Gamma Globulin 0.6 g/dL (0.4-1.8); Globulin Total 2.8 g/dL (2.2-3.9)
== END ==
PROVIDERS: PCP Internal Medicine; Referring Provider Internal Medicine; Visit Provider Internal Medicine
DX: D64.9 Anemia, unspecified (principal); N18.30 Chronic kidney disease, stage 3 unspecified; R63.4 Abnormal weight loss
CPT/HCPCS: 36415; 82607; 82668; 82728; 82746; 83010; 83540; 83550; 83615; 84155; 84165; 85651

== ENCOUNTER → 2020-05-22 10:44 | Outpatient (CLI) | payer MEDICARE, SELFPAY ==
[2020-05-22 11:50] LABS: Blood Urea Nitrogen 17 mg/dL (7-17); Calcium 9.3 mg/dL (8.4-10.2); Carbon Dioxide 25 mmol/L (22-32); Chloride 104 mmol/L (98-107); Estimated Glomerular Filt Rate 46.9 mL/min (>60); Glucose 90 mg/dL (80-110); HEMOLYSIS < 15 (0-50); Potassium 4.1 mmol/L (3.4-5.1); Sodium 136 mmol/L (137-145)
[2020-05-22 11:51] LABS: HEMOLYSIS < 15 (0-50); Iron 57 ug/dL (37-170)
[2020-05-22 12:02] LABS: Percent Iron Saturation 18 % (15-50); Total Iron Binding Capacity 310 ug/dL (265-497); Transferrin 237 mg/dL (206-381)
== END ==
PROVIDERS: PCP Internal Medicine; Referring Provider Internal Medicine; Visit Provider Internal Medicine
DX: E78.2 Mixed hyperlipidemia (principal); I10 Essential (primary) hypertension; R79.0 Abnormal level of blood mineral
CPT/HCPCS: 36415; 80048; 83540; 83550

== ENCOUNTER → 2020-06-25 09:24 | Outpatient (CLI) | payer MEDICARE, SELFPAY ==
[2020-06-25 10:32] LABS: Add Manual Diff / Slide Review NO; Basophils Absolute Auto 200 /uL (0-100); Basophils Percent Auto 1.9 % (0-2); Eosinophils Absolute Auto 1100 /uL (0-450); Eosinophils Percent Auto 13.3 % (2-4); Hematocrit 32.4 % (36-46); Hemoglobin 10.5 g/dL (12.0-16.0); Lymphocytes Absolute Auto 1100 /uL (1100-4500); Lymphocytes Percent Auto 14.1 % (25-40); Mean Corpuscular HGB Conc 32.3 % (30-36); Mean Corpuscular Volume 92.8 fL (80-100); Monocytes Absolute Auto 500 /uL (0-900); Neutrophils Absolute Auto 5100 /uL (1500-7000); Neutrophils Percent Auto 64.7 % (50-75); Platelet Count 286 X10^3/uL (150-400); Red Blood Cell Count 3.49 X10^6/uL (4.0-5.2); Red Cell Distribution Width 14.4 % (11.6-14.8); White Blood Cell Count 7.9 X10^3/uL (4.5-11.0)
[2020-06-25 10:55] LABS: Erythrocyte Sedimentation Rate 17 MM/HR (0-20)
[2020-06-25 11:13] LABS: HEMOLYSIS < 15 (0-50); Iron 33 ug/dL (37-170)
[2020-06-25 11:22] LABS: Alanine Aminotransferase 10 IU/L (<35); Albumin 3.7 g/dL (3.5-5.0); Albumin Globulin Ratio 1.5 (1.0-2.8); Alkaline Phosphatase 113 U/L (38-126); Aspartate Aminotransferase 20 IU/L (14-36); BUN Creatinine Ratio 25.8 (6-22); Blood Urea Nitrogen 17 mg/dL (7-17); C-Reactive Protein Quant < 0.5 mg/dL (<1.0); Calcium 9.7 mg/dL (8.4-10.2); Carbon Dioxide 26 mmol/L (22-32); Chloride 107 mmol/L (98-107); Estimated Glomerular Filt Rate > 60.0 mL/min (>60); Globulin 2.4 g/dL (1.7-4.1); Glucose 83 mg/dL (80-110); HEMOLYSIS < 15 (0-50); Potassium 4.3 mmol/L (3.4-5.1); Sodium 139 mmol/L (137-145); Total Protein 6.1 g/dL (6.3-8.2)
[2020-06-25 11:23] LABS: Bilirubin Total < 0.1 mg/dL (0.2-1.3)
[2020-06-25 11:24] LABS: Percent Iron Saturation 11 % (15-50); Total Iron Binding Capacity 302 ug/dL (265-497); Transferrin 258 mg/dL (206-381)
[2020-06-25 11:30] LABS: Free T4, Direct Thyroxine 1.31 ng/dL (0.78-2.19)
[2020-06-25 11:43] LABS: Thyroid Stimulating Hormone 2.98 uIU/mL (0.47-4.68)
== END ==
PROVIDERS: PCP Internal Medicine; Referring Provider Internal Medicine; Visit Provider Internal Medicine
DX: D64.9 Anemia, unspecified (principal); E78.2 Mixed hyperlipidemia; I10 Essential (primary) hypertension; R63.4 Abnormal weight loss
CPT/HCPCS: 36415; 80053; 83540; 83550; 84439; 84443; 85025; 85651; 86140

== ENCOUNTER → 2020-07-06 16:03 | Outpatient (CLI) | payer MEDICARE, SELFPAY ==
[2020-07-06 17:03] LABS: Add Manual Diff / Slide Review NO; Basophils Absolute Auto 100 /uL (0-100); Basophils Percent Auto 0.9 % (0-2); Eosinophils Absolute Auto 600 /uL (0-450); Eosinophils Percent Auto 6.8 % (2-4); Hematocrit 32.4 % (36-46); Hemoglobin 10.6 g/dL (12.0-16.0); Lymphocytes Absolute Auto 1400 /uL (1100-4500); Lymphocytes Percent Auto 16.4 % (25-40); Mean Corpuscular HGB Conc 32.8 % (30-36); Mean Corpuscular Hemoglobin 30.2 PG (26-34); Monocytes Absolute Auto 500 /uL (0-900); Monocytes Percent Auto 5.5 % (3-14); Neutrophils Absolute Auto 5900 /uL (1500-7000); Neutrophils Percent Auto 70.4 % (50-75); Platelet Count 310 X10^3/uL (150-400); Red Blood Cell Count 3.52 X10^6/uL (4.0-5.2); Red Cell Distribution Width 14.3 % (11.6-14.8); White Blood Cell Count 8.4 X10^3/uL (4.5-11.0)
[2020-07-06 17:44] LABS: HEMOLYSIS < 15 (0-50); Iron 83 ug/dL (37-170)
[2020-07-06 17:56] LABS: Alanine Aminotransferase 11 IU/L (<35); Albumin Globulin Ratio 1.5 (1.0-2.8); Alkaline Phosphatase 112 U/L (38-126); Aspartate Aminotransferase 24 IU/L (14-36); BUN Creatinine Ratio 21.4 (6-22); Bilirubin Total 0.2 mg/dL (0.2-1.3); Blood Urea Nitrogen 22 mg/dL (7-17); Calcium 10.1 mg/dL (8.4-10.2); Carbon Dioxide 29 mmol/L (22-32); Chloride 104 mmol/L (98-107); Estimated Glomerular Filt Rate 52.2 mL/min (>60); Globulin 2.7 g/dL (1.7-4.1); Glucose 98 mg/dL (80-110); HEMOLYSIS < 15 (0-50); Potassium 4.1 mmol/L (3.4-5.1); Sodium 140 mmol/L (137-145); Total Protein 6.7 g/dL (6.3-8.2)
[2020-07-06 17:58] LABS: Percent Iron Saturation 27 % (15-50); Total Iron Binding Capacity 310 ug/dL (265-497); Transferrin 258 mg/dL (206-381)
== END ==
PROVIDERS: PCP Internal Medicine; Referring Provider Internal Medicine; Visit Provider Internal Medicine
DX: D64.9 Anemia, unspecified (principal); E61.1 Iron deficiency; E78.2 Mixed hyperlipidemia; I10 Essential (primary) hypertension; Z01.812 Encounter for preprocedural laboratory examination
CPT/HCPCS: 36415; 80053; 82565; 83540; 83550; 84520; 85025

== ENCOUNTER → 2020-07-07 12:51 | Outpatient (CLI) | payer MEDICARE, SELFPAY ==
--- NOTE | 2020-07-07 13:46 | DI.CT.S_ITS ---
PROCEDURE: CT ABDOMEN PELVIS W CON INDICATIONS: left flank pain TECHNIQUE: After the administration of intravenous contrast, 5 mm thick sections acquired from the diaphragm to the symphysis. 5 mm coronal and sagittal reformats were acquired. For radiation dose reduction, the following was used: automated exposure control, adjustment of mA and/or kV according to patient size. COMPARISON: None. FINDINGS: Image quality: Excellent. ABDOMEN: Lung bases: There is a 1 cm ground-glass density in the right lung base medially. Lung bases are clear. Bilateral small Bochdalek hernias in the left posterior hemidiaphragms. Heart size is normal. Small hiatal hernia. Solid organs: A calcified nodule in the peripheral aspect of the liver laterally is likely an old granuloma. Liver is normal in size and enhancement. Gallbladder is normal. Biliary system is mildly dilated. Common bile duct measures 8 mm in diameter. Pancreas enhances normally. Spleen is normal in size and enhancement. No adrenal nodules. Horseshoe kidneys. Kidneys demonstrate normal size and enhancement, without hydronephrosis. Peritoneum and bowel: There are scattered colonic diverticula. No CT findings to suggest acute diverticulitis. Moderate amount of stool in colon. Bowel loops demonstrate normal wall thickness and caliber. No free fluid or air. Nodes and vessels: There are borderline enlarged mesenteric lymph nodes. For example, there is a 1.2 cm lymph node in the right side of the abdomen (series 2, image 45). Numerous small normal sized retroperitoneal lymph nodes are noted. Aorta and inferior vena cava are normal in size. Mild atherosclerosis. Miscellaneous: No ventral hernias. PELVIS: Genitourinary: Bladder wall thickness is normal. There is a calcified nodule in uterus, probably a uterine leiomyoma. No free fluid in pelvis. Miscellaneous: No inguinal hernias or adenopathy. Bones: No suspicious bony lesions. No vertebral body compression fractures. Moderate scoliosis. Severe degenerative changes in lumbar spine. There is moderate central canal stenosis at L3-L4 and L4-L5. IMPRESSION: 1. Horseshoe kidneys. No renal stone or hydronephrosis. 2. Mildly enlarged mesenteric lymph nodes and prominent yet still normal sized retroperitoneal lymph nodes are present, most likely reactive. Recommend clinical correlation and follow up. 3. A 1 cm ground-glass nodular density in the right lung base. A follow-up chest CT is suggested 4. Diverticulosis without diverticulitis. 5. Mild intrahepatic and extrahepatic biliary dilation. No radiopaque gallstones. Please correlate with serum bilirubin for biliary obstruction. Dictated by: Luci Antony M.D. on 07/07/2020 at 15:08 Approved by: Luci Antony M.D. on 07/07/2020 at 15:38
== END ==
PROVIDERS: PCP Internal Medicine; Referring Provider Internal Medicine; Visit Provider Internal Medicine
DX: R10.32 Left lower quadrant pain (principal); K57.90 Diverticulosis of intestine, part unspecified, without perforation or abscess without bleeding; K83.8 Other specified diseases of biliary tract; R59.0 Localized enlarged lymph nodes; R91.1 Solitary pulmonary nodule
CPT/HCPCS: 74177

== ENCOUNTER → 2020-07-10 11:24 | Outpatient (CLI) | payer MEDICARE, SELFPAY ==
--- NOTE | 2020-07-10 11:26 | DI.CT.S_ITS ---
PROCEDURE: CT CHEST W CON INDICATIONS: pulm nodule TECHNIQUE: After the administration of intravenous contrast, 5 mm thick sections acquired from the pulmonary apices to the posterior costophrenic angles. 1 mm axial lung, 5 mm thick coronal and sagittal reformats and 7 mm axial MIP were acquired. For radiation dose reduction, the following was used: automated exposure control, adjustment of mA and/or kV according to patient size. COMPARISON: [facility], CT, CT ABDOMEN PELVIS W CON, 07/07/2020, 13:43. FINDINGS: Image quality: Excellent. Lungs and pleura: No acute air space opacities. An area of medial right lower lobe ground glass radiodensity measuring approximately 1 cm has resolved. No pleural effusions or pneumothorax. Central and peripheral airways are patent and normal in caliber. Mediastinum: Heart size is normal. No pericardial effusion. No mediastinal or hilar adenopathy by size criteria. Thoracic aorta and central pulmonary arteries are normal in size. Esophagus is normal in caliber. No hiatal hernia. Bones and chest wall: No suspicious bony lesions. No vertebral body compression fractures. No axillary or supraclavicular adenopathy by size criteria. Thyroid gland appears normal where well seen.. Abdomen: Visualized upper abdominal solid organs appear normal. Upper abdominal bowel loops are normal in caliber. IMPRESSION: Resolution of a 1 cm ground-glass medial right lower lobe lung nodule has occurred subsequent to the prior study from 07/07/20. This therefore appears to have represented a inflammatory focus requiring no follow-up. No mediastinal or hilar adenopathy is seen. No acute bone or soft tissue lesion is found. Dictated by: Remy Puga M.D. on 07/10/2020 at 15:23 Approved by: Remy Puga M.D. on 07/10/2020 at 15:29
== END ==
PROVIDERS: PCP Internal Medicine; Referring Provider Internal Medicine; Visit Provider Internal Medicine
DX: R91.1 Solitary pulmonary nodule (principal)
CPT/HCPCS: 71260

== ENCOUNTER → 2020-09-17 09:38 | Outpatient (CLI) | payer MEDICARE, SELFPAY ==
[2020-09-17 10:23] LABS: Add Manual Diff / Slide Review NO; Basophils Absolute Auto 100 /uL (0-100); Basophils Percent Auto 0.9 % (0-2); Eosinophils Absolute Auto 300 /uL (0-450); Eosinophils Percent Auto 4.3 % (2-4); Hematocrit 34.7 % (36-46); Hemoglobin 11.6 g/dL (12.0-16.0); Lymphocytes Absolute Auto 1000 /uL (1100-4500); Lymphocytes Percent Auto 14.8 % (25-40); Mean Corpuscular HGB Conc 33.5 % (30-36); Mean Corpuscular Hemoglobin 30.7 PG (26-34); Mean Corpuscular Volume 91.7 fL (80-100); Monocytes Absolute Auto 500 /uL (0-900); Monocytes Percent Auto 6.6 % (3-14); Neutrophils Absolute Auto 5100 /uL (1500-7000); Neutrophils Percent Auto 73.4 % (50-75); Platelet Count 286 X10^3/uL (150-400); Red Blood Cell Count 3.78 X10^6/uL (4.0-5.2); Red Cell Distribution Width 13.7 % (11.6-14.8)
[2020-09-17 11:28] LABS: HEMOLYSIS < 15 (0-50); Iron 63 ug/dL (37-170)
[2020-09-17 11:34] LABS: HEMOLYSIS < 15 (0-50); Potassium 4.6 mmol/L (3.4-5.1)
[2020-09-17 11:35] LABS: Alanine Aminotransferase 14 IU/L (<35); Albumin Globulin Ratio 1.7 (1.0-2.8); Alkaline Phosphatase 104 U/L (38-126); Aspartate Aminotransferase 25 IU/L (14-36); BUN Creatinine Ratio 22.7 (6-22); Bilirubin Total 0.3 mg/dL (0.2-1.3); Blood Urea Nitrogen 17 mg/dL (7-17); Calcium 9.8 mg/dL (8.4-10.2); Carbon Dioxide 27 mmol/L (22-32); Chloride 104 mmol/L (98-107); Estimated Glomerular Filt Rate > 60.0 mL/min (>60); Globulin 2.4 g/dL (1.7-4.1); Glucose 95 mg/dL (80-110); Sodium 139 mmol/L (137-145); Total Protein 6.4 g/dL (6.3-8.2)
[2020-09-17 11:37] LABS: Percent Iron Saturation 19 % (15-50); Total Iron Binding Capacity 331 ug/dL (265-497); Transferrin 261 mg/dL (206-381)
== END ==
PROVIDERS: PCP Internal Medicine; Referring Provider Internal Medicine; Visit Provider Internal Medicine
DX: D50.8 Other iron deficiency anemias (principal); E78.2 Mixed hyperlipidemia; I10 Essential (primary) hypertension
CPT/HCPCS: 36415; 80053; 83540; 83550; 85025

== ENCOUNTER → 2020-12-10 09:01 | Outpatient (CLI) | payer MEDICARE, SELFPAY ==
[2020-12-10 10:02] LABS: Hematocrit 35.2 % (36-46); Hemoglobin 11.5 g/dL (12.0-16.0); Mean Corpuscular HGB Conc 32.8 % (30-36); Mean Corpuscular Hemoglobin 30.1 PG (26-34); Mean Corpuscular Volume 91.9 fL (80-100); Platelet Count 318 X10^3/uL (150-400); Red Blood Cell Count 3.83 X10^6/uL (4.0-5.2); Red Cell Distribution Width 14.2 % (11.6-14.8); White Blood Cell Count 11.2 X10^3/uL (4.5-11.0)
[2020-12-10 10:30] LABS: Alanine Aminotransferase 15 IU/L (<35); Albumin 4.1 g/dL (3.5-5.0); Albumin Globulin Ratio 1.4 (1.0-2.8); Alkaline Phosphatase 119 U/L (38-126); Aspartate Aminotransferase 28 IU/L (14-36); BUN Creatinine Ratio 22.2 (6-22); Bilirubin Total 0.3 mg/dL (0.2-1.3); Blood Urea Nitrogen 16 mg/dL (7-17); Calcium 9.2 mg/dL (8.4-10.2); Carbon Dioxide 28 mmol/L (22-32); Chloride 107 mmol/L (98-107); Estimated Glomerular Filt Rate > 60.0 mL/min (>60); Globulin 2.9 g/dL (1.7-4.1); Glucose 89 mg/dL (80-110); HEMOLYSIS < 15 (0-50); Iron 73 ug/dL (37-170); Potassium 4.3 mmol/L (3.4-5.1); Sodium 140 mmol/L (137-145)
[2020-12-10 10:44] LABS: Percent Iron Saturation 23 % (15-50); Total Iron Binding Capacity 313 ug/dL (265-497); Transferrin 264 mg/dL (206-381)
== END ==
PROVIDERS: PCP Internal Medicine; Referring Provider Internal Medicine; Visit Provider Internal Medicine
DX: D50.8 Other iron deficiency anemias (principal); I10 Essential (primary) hypertension; E78.2 Mixed hyperlipidemia
CPT/HCPCS: 36415; 80053; 83540; 83550; 85027

== ENCOUNTER → 2021-10-25 11:50 | Outpatient (CLI) | payer MEDICARE, SELFPAY ==
--- NOTE | 2021-10-25 11:51 | DI.RAD.S_ITS ---
PROCEDURE: XR TIBIA FIBULA LT 2V INDICATIONS: swelling, pain TECHNIQUE: 2 views of the tibia and fibula were acquired. COMPARISON: None. FINDINGS: Bones: Old healed fracture involving distal fibular shaft is seen. Severe tibiotalar joint and subtalar joint osteoarthritic changes are noted with chronic appearing remodeling at ankle mortise. No gross acute left lower leg fracture or dislocation. No suspicious bony lesion. Soft tissues: No suspicious soft tissue calcifications or masses. IMPRESSION: No acute left lower leg fracture or dislocation. Old healed distal fibular shaft fracture and severe ankle joint osteoarthritis as above. Dictated by: Rob Sharp M.D. on 10/25/2021 at 11:16 Approved by: Rob Sharp M.D. on 10/25/2021 at 11:17
--- NOTE | 2021-10-25 11:51 | DI.RAD.S_ITS ---
PROCEDURE: XR FOOT LT MIN 3V INDICATIONS: swelling, pain TECHNIQUE: 3 views of the foot were acquired. COMPARISON: None. FINDINGS: Bones: No acute fracture or dislocation. Severe osteoarthritic changes are noted in tibiotalar joint and subtalar joint. Moderate talonavicular joint osteoarthritic changes also seen. No gross acute fracture or dislocation. [id number] osteoarthritic changes also noted throughout midfoot and forefoot joints. No suspicious bony lesions. Soft tissues: No tibiotalar joint effusion. Achilles tendon appears normal. Well corticated calcifications within soft tissue along anterior aspect of tibiotalar joint is seen which could represent intra-articular loose bodies. IMPRESSION: No acute left foot fracture or dislocation. Severe hindfoot joint osteoarthritis and [id number] midfoot and forefoot joint osteoarthritis as above. Chronic appearing deformity of tibiotalar joint and subtalar joint. Possible intra-articular loose bodies in anterior aspect of tibiotalar joint. Dictated by: Rob Sharp M.D. on 10/25/2021 at 11:18 Approved by: Rob Sharp M.D. on 10/25/2021 at 11:19
== END ==
PROVIDERS: PCP Internal Medicine; Referring Provider Nurse Practitioner Family; Visit Provider Nurse Practitioner Family
DX: M19.072 Primary osteoarthritis, left ankle and foot (principal); M25.472 Effusion, left ankle; M25.572 Pain in left ankle and joints of left foot; R26.2 Difficulty in walking, not elsewhere classified; Z87.81 Personal history of (healed) traumatic fracture
CPT/HCPCS: 73590; 73630

== ENCOUNTER → 2022-01-11 09:03 | Outpatient (CLI) | payer MEDICARE, SELFPAY ==
[2022-01-11 10:24] LABS: Add Manual Diff / Slide Review NO; Basophils Absolute Auto 100 /uL (0-100); Basophils Percent Auto 1.6 % (0-2); Eosinophils Absolute Auto 400 /uL (0-450); Hematocrit 34.4 % (36-46); Hemoglobin 11.4 g/dL (12.0-16.0); Lymphocytes Absolute Auto 1000 /uL (1100-4500); Lymphocytes Percent Auto 16.9 % (25-40); Mean Corpuscular HGB Conc 33.2 % (30-36); Mean Corpuscular Hemoglobin 30.1 PG (26-34); Mean Corpuscular Volume 90.7 fL (80-100); Monocytes Absolute Auto 300 /uL (0-900); Neutrophils Absolute Auto 4000 /uL (1500-7000); Neutrophils Percent Auto 68.5 % (50-75); Platelet Count 299 X10^3/uL (150-400); Red Blood Cell Count 3.79 X10^6/uL (4.0-5.2); Red Cell Distribution Width 14.3 % (11.6-14.8); White Blood Cell Count 5.8 X10^3/uL (4.5-11.0)
[2022-01-11 10:37] LABS: Erythrocyte Sedimentation Rate 15 MM/HR (0-20)
[2022-01-11 10:55] LABS: Alanine Aminotransferase 15 IU/L (<35); Albumin 4.1 g/dL (3.5-5.0); Albumin Globulin Ratio 1.5 (1.0-2.8); Alkaline Phosphatase 128 U/L (38-126); Aspartate Aminotransferase 26 IU/L (14-36); BUN Creatinine Ratio 21.2 (6-22); Bilirubin Total 0.3 mg/dL (0.2-1.3); Blood Urea Nitrogen 18 mg/dL (7-17); C-Reactive Protein Quant < 0.5 mg/dL (<1.0); Calcium 9.1 mg/dL (8.4-10.2); Carbon Dioxide 28 mmol/L (22-32); Chloride 105 mmol/L (98-107); Cholesterol 138 mg/dL (140-199); Estimated Glomerular Filt Rate > 60 mL/min (>60); Globulin 2.7 g/dL (1.7-4.1); Glucose 83 mg/dL (80-110); HDL Cholesterol 53 mg/dL (40-60); HEMOLYSIS < 15 (0-50); LDL Cholesterol Calculated 70 mg/dL (<100); Potassium 4.3 mmol/L (3.4-5.1); Sodium 141 mmol/L (137-145); Total Protein 6.8 g/dL (6.3-8.2); Triglycerides 76 mg/dL (35-150)
[2022-01-11 12:35] LABS: HEMOLYSIS < 15 (0-50); Iron 67 ug/dL (37-170)
[2022-01-11 12:46] LABS: Percent Iron Saturation 19 % (15-50); Total Iron Binding Capacity 354 ug/dL (265-497); Transferrin 262 mg/dL (206-381)
== END ==
PROVIDERS: PCP Internal Medicine; Referring Provider Internal Medicine; Visit Provider Internal Medicine
DX: E61.1 Iron deficiency (principal); E78.2 Mixed hyperlipidemia; I10 Essential (primary) hypertension; M71.10 Other infective bursitis, unspecified site
CPT/HCPCS: 36415; 80053; 80061; 83540; 83550; 85025; 85651; 86140

== ENCOUNTER → 2022-06-09 10:13 | Outpatient (CLI) | payer MEDICARE, SELFPAY ==
[2022-06-09 11:10] LABS: Alanine Aminotransferase 15 IU/L (<35); Albumin 3.8 g/dL (3.5-5.0); Albumin Globulin Ratio 1.4 (1.0-2.8); Alkaline Phosphatase 109 U/L (38-126); Aspartate Aminotransferase 24 IU/L (14-36); BUN Creatinine Ratio 40.4 (6-22); Bilirubin Total 0.3 mg/dL (0.2-1.3); Blood Urea Nitrogen 23 mg/dL (7-17); Calcium 8.7 mg/dL (8.4-10.2); Carbon Dioxide 31 mmol/L (22-32); Chloride 102 mmol/L (98-107); Cholesterol 139 mg/dL (140-199); Estimated Glomerular Filt Rate > 60 mL/min (>60); Globulin 2.7 g/dL (1.7-4.1); Glucose 82 mg/dL (80-110); HDL Cholesterol 51 mg/dL (40-60); HEMOLYSIS 22 (0-50); LDL Cholesterol Calculated 75 mg/dL (<100); Potassium 4.3 mmol/L (3.4-5.1); Sodium 139 mmol/L (137-145); Total Protein 6.5 g/dL (6.3-8.2); Triglycerides 67 mg/dL (35-150)
== END ==
PROVIDERS: PCP Internal Medicine; Referring Provider Internal Medicine; Visit Provider Internal Medicine
DX: E78.5 Hyperlipidemia, unspecified (principal); F32.9 Major depressive disorder, single episode, unspecified; I10 Essential (primary) hypertension
CPT/HCPCS: 36415; 80053; 80061

== ENCOUNTER → 2022-09-09 11:09 | Outpatient (CLI) | payer MEDICARE, SELFPAY ==
[2022-09-09 11:49] LABS: Add Manual Diff / Slide Review NO; Basophils Absolute Auto 100 /uL (0-100); Basophils Percent Auto 1.2 % (0-2); Eosinophils Absolute Auto 600 /uL (0-450); Eosinophils Percent Auto 5.8 % (2-4); Hematocrit 33.3 % (36-46); Lymphocytes Absolute Auto 1300 /uL (1100-4500); Lymphocytes Percent Auto 12.7 % (25-40); Mean Corpuscular HGB Conc 33.1 % (30-36); Mean Corpuscular Hemoglobin 28.9 PG (26-34); Mean Corpuscular Volume 87.3 fL (80-100); Monocytes Absolute Auto 900 /uL (0-900); Neutrophils Absolute Auto 7300 /uL (1500-7000); Neutrophils Percent Auto 71.3 % (50-75); Platelet Count 465 X10^3/uL (150-400); Red Blood Cell Count 3.82 X10^6/uL (4.0-5.2); Red Cell Distribution Width 14.8 % (11.6-14.8); White Blood Cell Count 10.3 X10^3/uL (4.5-11.0)
[2022-09-09 12:04] LABS: Blood Urea Nitrogen 38 mg/dL (7-17); Calcium 8.9 mg/dL (8.4-10.2); Carbon Dioxide 25 mmol/L (22-32); Chloride 104 mmol/L (98-107); Estimated Glomerular Filt Rate > 60 mL/min (>60); Glucose 108 mg/dL (80-110); HEMOLYSIS < 15 (0-50); Potassium 3.9 mmol/L (3.4-5.1); Sodium 138 mmol/L (137-145)
[2022-09-09 12:38] LABS: Appearance Urine UA CLEAR; Bilirubin Urine UA NEGATIVE (NEGATIVE); Color Urine UA YELLOW; Glucose Urine UA NEGATIVE (Negative); Ketones Urine UA TRACE (NEGATIVE); Leukocyte Esterase Urine UA NEGATIVE (NEGATIVE); Nitrite Urine UA NEGATIVE (Negative); Occult Blood Urine UA NEGATIVE (Negative); Protein Urine UA NEGATIVE (Negative); Specific Gravity Urine UA 1.025 (1.000-1.035)
[2022-09-09 14:24] LABS: Bacteria Urine Occasional (0-1); Culture Indicated Urine Cult Not Indicated; RBC Urine 0-1/HPF (0-5/HPF); Squamous Epithelial Cell Urine 0-1 /HPF (0-5/HPF); WBC Urine 0-1/HPF (0-5/HPF)
[2022-09-10 05:25] LABS: Labcorp Hemoglobin (Hb) A1c 5.7 % (4.8-5.6)
== END ==
PROVIDERS: PCP Internal Medicine; Referring Provider Orthopaedic Surgery; Visit Provider Orthopaedic Surgery
DX: Z01.818 Encounter for other preprocedural examination (principal); R73.9 Hyperglycemia, unspecified; Z01.812 Encounter for preprocedural laboratory examination; N39.0 Urinary tract infection, site not specified
CPT/HCPCS: 36415; 80048; 81001; 83036; 85025; 93005

== ENCOUNTER 2022-10-11 11:22 | Day surgery (SDC) | payer MEDICARE, SELFPAY ==
[2022-10-04 12:48] VITALS: BMI 28.8
[2022-10-11] VITALS (9 sets, daily range): BP systolic 91–145; BP diastolic 52–72; PULSE 70–89; RESP 15–21; TEMP 35.7–36.8; O2SAT 94–98; BMI 29.9
--- NOTE | 2022-10-11 06:00 | DI.RAD.S_ITS ---
PROCEDURE: XR KNEE RT 1TO2V INDICATIONS: TKA TECHNIQUE: 2 view(s) of the knee acquired. COMPARISON: None. FINDINGS: Bones: Patient is status post knee joint arthroplasty. Hardware components are in expected positions. Visualized bony structures are intact. Soft tissues: Overlying postoperative changes are noted. IMPRESSION: Postoperative changes of total right knee replacement. Dictated by: Tate Matos M.D. on 10/11/2022 at 17:06 Approved by: Tate Matos M.D. on 10/11/2022 at 17:06
--- NOTE | 2022-10-11 08:57 | SUR.OPER ---
Supine on padded OR bed. Pillow under head, arms secured on padded armboards <90 degree abduction. Safety belt across torso. Non-operative leg secured with tape over blanket over lower leg. Operative leg secured in DeMayo positioner. Foam padded brace at thigh of operative leg.
[2022-10-11] MEDS: LACTATED RINGERS 1,000 ML 42 ML IV (12:18)
[2022-10-11] MEDS: ACETAMINOPHEN 325 MG TABLET 975 MG PO (12:21)
[2022-10-11] MEDS: CELECOXIB 200 MG CAPSULE PO (12:22)
[2022-10-11] MEDS: VANCOMYCIN 1,000 MG/200 ML PIGGYBACK 200 MG IV (13:05)
--- NOTE | 2022-10-11 13:38 | PM.PREOP ---
Pre-operative Note Interval Note History & Physical reviewed/Exam performed by Physician: Yes Changes to H&P: No
[2022-10-11] MEDS: CEFAZOLIN 2 GM/100 ML PREMIX 100 ML IV ×2 (14:10→21:09)
[2022-10-11] MEDS: TRANEXAMIC ACID 1,000 MG VIAL 2000 MG INJ (14:28)
[2022-10-11] MEDS: BUPIVACAINE 0.25% (PF) 60 ML, EPINEPHrine 0.3 MG INJ (15:16)
[2022-10-11] MEDS: BUPIVACAINE LIPOSOME 266 MG/20 ML VIAL INJ (15:18)
--- NOTE | 2022-10-11 16:29 | P.OP_ITS ---
Operative Date/Time/Diagnoses Date of procedure: 10/11/22 Time of procedure: 14:00 Pre-op diagnosis: Severe right knee OA valgus deformity Post-op diagnosis: same Procedure & Clinicians Procedure: Right total knee arthroplasty Same procedure as scheduled: Yes Indications: The patient has had progressively worsening right knee pain with radiographic changes consistent with arthritis. Non-operative management has failed and the patient has requested total knee replacement. The risks, benefits and alternatives to surgery were discussed with the patient prior to proceeding. Risks discussed included, but were not limited to, failure to relieve pain, stiffness, infection, nerve damage, deep venous thrombosis, pulmonary embolism, stroke, coma, heart attack, permanent paralysis and , as well as the potential need for eventual revision of the prosthetic. Surgeon: Eve Kirkpatrikc Assistant Professor Sculpture: David Green Anesthesia Type: Spinal Operative Notes Findings: Severe right knee osteoarthritis, adequate stability, soft bone especially in the tibia Closure Type: primary Specimen(s): none sent Prosthetic devices, grafts, tissues, transplants, or devices: Kirkpatrick and nephew size 5 femur, size 3 tibia, +9 poly 35 x 7-1/2 mm patella Estimated Blood Loss (mL): 250 Blood products transfused: none Tourniquet time (min): 86 Procedure in detail: The patient was seen in the pre-operative area, where the patient identified the right knee as the operative site and this was marked with my initials. The patient received pre-operative antibiotics, and was taken to the operating room and placed on the operative table in the supine position. After satisfactory anesthesia, a multi share program coordinator out was performed. The right leg was encircled with a tourniquet about the proximal thigh, and the leg was prepared from the toes to the tourniquet with ChloroPrep in the usual fashion and draped through sterile drapes. The leg was elevated and exsanguinated with Eschmark bandage and the tourniquet inflated to [250] mmHg pressure. A PA was used and was essential for adequate retraction and establishment of hemostasis as well as safe implantation of the components. The knee was approached through an approximately 18 cm incision centered over the patella and carried into the knee through a medial parapatellar arthrotomy. A portion of the medial and lateral meniscus was resected. Soft tissue was carefully mobilized around the patella the patella was measured with a caliper. Bone was resected from the patella and the patellar height was reconstituted with up an appropriate sized patellar component. A cover was then placed on the patella. A small amount of additional medial and lateral meniscus was resected. The distal femur was cut at 5?. A [+2] cut was used. It looked like an approp riate distal femoral cut and the cut was made without difficulty. An extramedullary guide was used for the tibial cut. 8 mm was resected off the least affected side.The tibia was prepared. The rotation was assessed. The patient was placed in extension residual medial and lateral meniscus as well as any residual bone was carefully resected. 2mm additional tibia was resected. Hemostasis was achieved especially posteriorly. Additional local was injected into the posterior capsule. The extension gap was assessed and additional releases for gap balancing were performed as necessary. It was checked with the gap application designer. The femoral component was trial was placed and the notch was finished. The rotation was assessed and the appropriate size femoral guide was placed on the distal femur and finishing cuts were made. There was no evidence of notching. The anterior, posterior and chamfer cuts were then made. The posterior osteophytes and soft tissues were then removed. The posterior capsule was injected with part of a mixture of 60 ml 0.25% Marcaine mixed with 20 ml Exparel for post operative pain control. The remainder of this mixture was injected into the capsule and subcutaneous tissues during cement curing. The tibial and femoral components were then placed and the knee placed through a range of motion. Range of motion was [0-130], with good stability throughout the range. The trials were then removed, and the tibia was finished. The bone was prepared with pulsatile lavage, and dried with a sponge. Cement was applied and the final prosthetics placed. Excess cement was removed during and after cement curing. A brief Betadine soak was performed. After confirming there was no extruded cement posteriorly, the final tibial insert was placed. The knee was copiously irrigated and the tourniquet deflated. Hemostasis was obtained with the Bovie cautery. The capsule was closed with interrupted nonabsorbable suture. The subcutaneous layer was closed with barbed sutures, and the skin with a running 3-0 V-Lock suture and skin rhonda. An Aquacel Ag dressing was applied and the patient was taken to recovery having tolerated the procedure well. Complications: none Post-operative Condition: stable Disposition: Acute Care Plan for aftercare: The patient will be maintained on a standard total knee replacement protocol with weight bearing as tolerated. The patient will receive aspirin and sequential compression devices for DVT prophylaxis. The patient will be discharged home when safe for the home environment.
--- NOTE | 2022-10-11 16:46 | SUR.PHASEI ---
Report called to [facility]. Patient transferred to the floor by Tyree with her brown belongings bag and betsy villarreal.
[2022-10-11] MEDS: ONDANSETRON 4 MG ODT PO (17:16)
[2022-10-11] MEDS: ACETAMINOPHEN 325 MG TABLET 650 MG PO ×2 (17:20→22:13)
[2022-10-11] MEDS: IBUPROFEN 400 MG TABLET PO ×3 (17:20→23:46)
[2022-10-11] MEDS: LACTATED RINGERS 1,000 ML 100 ML IV (17:21)
[2022-10-11] MEDS: OXYCODONE IR 5 MG TABLET PO ×3 (18:30→23:46)
[2022-10-11] MEDS: ASPIRIN EC 81 MG TABLET PO (21:02)
[2022-10-11] MEDS: DOCUSATE 100 MG CAPSULE PO (21:02)
[2022-10-11] MEDS: diazePAM 2 MG TABLET PO (22:22)
[2022-10-12] MEDS: ACETAMINOPHEN 325 MG TABLET 650 MG PO ×2 (05:13→10:12)
[2022-10-12] MEDS: CEFAZOLIN 2 GM/100 ML PREMIX 100 ML IV (05:13)
[2022-10-12] MEDS: IBUPROFEN 400 MG TABLET PO ×3 (05:13→13:07)
[2022-10-12] MEDS: ONDANSETRON 4 MG ODT PO (06:25)
[2022-10-12 06:55] LABS: Hematocrit 28.3 % (36-46); Hemoglobin 9.3 g/dL (12.0-16.0)
--- NOTE | 2022-10-12 08:17 | P.DS_ITS ---
History of Present Illness History of Present Illness Date Patient Seen: 10/12/22 Time Patient Seen: 08:17 Chief complaint: Right TKA *OPB* Narrative: Operative Date/Time/Diagnoses Date of procedure: 10/11/22 Time of procedure: 14:00 Pre-op diagnosis: Severe right knee OA valgus deformity Post-op diagnosis: same Procedure & Clinicians Procedure: Right total knee arthroplasty Same procedure as scheduled: Yes Indications: The patient has had progressively worsening right knee pain with radiographic changes consistent with arthritis. Non-operative management has failed and the patient has requested total knee replacement. The risks, benefits and alternatives to surgery were discussed with the patient prior to proceeding. Risks discussed included, but were not limited to, failure to relieve pain, stiffness, infection, nerve damage, deep venous thrombosis, pulmonary embolism, stroke, coma, heart attack, permanent paralysis and , as well as the potential need for eventual revision of the prosthetic. Surgeon: [facility] Rn: David Green Anesthesia Type: Spinal Operative Notes Findings: Severe right knee osteoarthritis, adequate stability, soft bone especially in the tibia Closure Type: primary Specimen(s): none sent Prosthetic devices, grafts, tissues, transplants, or devices: Kirkpatrick and nephew size 5 femur, size 3 tibia, +9 poly 35 x 7-1/2 mm patella Estimated Blood Loss (mL): 250 Blood products transfused: none Tourniquet time (min): 86 Discharge Providers Provider Discharge Date: 10/12/22 Primary care physician: Hay Cary MD Consults: 10/11/22 06:00 Consult to Anesthesiology Routine Comment: Consulting Provider: Anesthesiologist Reason for consultation: Regional block for post operative pain control 10/11/22 16:49 Consult to Discharge Planning Routine Comment: Consult to Occupational Therapy Evaluate & Treat Comment: Physician Instructions: Evaluate and treat Consult to Physical Therapy Evaluate & Treat Comment: Physician Instructions: postop TKA protocol Discharge provider: Sara Rodriguez PA-C Summary Hospital Course Discharge Diagnosis: Severe right knee OA valgus deformity, s/p right total knee arthroplasty Hospital Course: Ms Marx's hospital course was unremarkable. On the morning of POD# 1, she was feeling well and wanted to go home if she did well w/ PT. She had been up to the bedside commode multiple times during the evening and was voiding without difficulty. She denied N/V and her pain was well-controlled with oral medicatio n. Exam Vital Signs (past 8 hours): Oxygen Delivery Method Room Air Oxygen Flow Rate 1 Narrative Exam Narrative: 5/5 strength in hip flexors, quadriceps, hamstrings, DF, PF, EHL on right. Sensation to light touch intact throughout RLE. Calf soft, compressible, nontender and without palpable cords or masses. LOVELY and Aquacel CDI. Objective Labs 10/12/22 06:30 Labs: Laboratory Results - last 24 hr 10/12/22 06:30 Hgb 9.3 L Hct 28.3 L PFSH Medical History (Updated 06/06/22 @ 09:33 by Hay Cary MD) Arthritis Eating disorder Hyperlipidemia (05/17/17) Hypertension Iron deficiency anemia Major depression Obesity Osteoarthritis of ankles, bilateral Postmenopausal Raynauds phenomenon Septic olecranon bursitis of left elbow Valgus deformity, not elsewhere classified, right ankle Valgus deformity, not elsewhere classified, right knee Surgical History (Updated 10/04/22 @ 13:06 by Sabra Langford RN) History of knee surgery History of orthopedic surgery (05/12/20) S/P cataract extraction (~04/2018) Family History Child Pancreatitis Father Fam hx-ischem heart disease Social History household members: spouse Smoking Status: Never smoker alcohol intake: former Discharge Assessment & Plan Assessment and Plan Assessment: Severe right knee OA valgus deformity, s/p right total knee arthroplasty Plan of Treatment: Discharge home after PT if PT feels it is appropriate. ASA BID x 6 weeks for VTE prophylaxis, outpt PT, multimodal pain control, f/u in office in 2 weeks as scheduled. Discharge Plan Discharge Plan Patient Disposition: Home Discharge orders & Medications Discharge Orders: Discharge (Order); Ordered 10/12/22 Ordered By: Sara Rodriguez Prescriptions: Continued venlafaxine 75 mg capsule,extended release 24hr 225 mg PO DAILY Qty: 90 3RF multivitamin Capsule 1 cap PO DAILY diclofenac sodium 100 mg tablet extended release 24 hr 100 mg PO BID Qty: 180 3RF diazepam 2 mg tablet 2 mg PO BEDTIME PRN (Reason: anxiety) Qty: 90 0RF Rx Instructions: Take one tab daily at bedtime as needed. simvastatin 20 mg tablet 20 mg PO Q DAY Qty: 90 3RF (DME) Disabled Parking strip Rx Instructions: Patient qualifies for disabled parking as per the attached form. Follow up/Referrals: Hay Cary MD [Primary Care Provider] - Eve Kirkpatrick MD [Physician] - As previously scheduled (Follow up w/ Dr Kirkpatrick on 10/26/2022 @ 2:00 pm at [facility] office in [place].) Diet/Activity/Treatments Diet: Diet as Tolerated Activity: Walk frequently! Cold/Heat Therapy: Ice to knee as needed for pain. Skin/Wound/Dressing Care Report to your healthcare provider any signs of infection, such as:: chills, fever, night sweats, unusual drainage and unusual redness Dressing: May remove LOVELY wrap and shower on 10/14/2022. Leave dressing in place until follow up in office. No bathing or otherwise soaking incision. Call the office if the dressing becomes saturated inside. Visit Report/Discharge Packet Instructions: DI for Knee Replacement Stand Alone Forms: Patient Portal/API, Surgery Discharge Discharge Data Primary Care Provider: Hay Cary Attending Provider: Eve Kirkpatrick
[2022-10-12 08:43] VITALS: O2SAT 96
[2022-10-12 08:51] VITALS: O2SAT 96
[2022-10-12 08:54] VITALS: BP 124/51; PULSE 88; RESP 17; TEMP 36.8; O2SAT 98
--- NOTE | 2022-10-12 09:48 | PT.IIE ---
Current Diagnoses Unilateral primary osteoarthritis, right knee (10/11/22) Surgery Performed Operation Date: 10/11/22 13:45 Actual Procedures p Total Knee Arthroplasty-RIGHT(Right) - Eve Kirkpatrick MD Surgical History (Last Updated 10/04/22 @ 13:06 by Sabra Langford RN) History of knee surgery History of orthopedic surgery (05/12/20) S/P cataract extraction (~04/2018) Medical History (Last Updated 06/06/22 @ 09:33 by Hay Cary MD) Arthritis Eating disorder Hyperlipidemia (05/17/17) Hypertension Iron deficiency anemia Major depression Obesity Osteoarthritis of ankles, bilateral Postmenopausal Raynauds phenomenon Septic olecranon bursitis of left elbow Valgus deformity, not elsewhere classified, right ankle Valgus deformity, not elsewhere classified, right knee Physical Therapy Inpatient Evaluation/Re-Eval M1 PT/OT-IP Prior Functional Status Start: 10/12/22 09:35 Freq: NEEDED Status: Active Protocol: Document 10/12/22 08:50 MB (Rec: 10/12/22 09:48 MB [id number]) Medical Review Prior Functional Status Medical History Reviewed Yes Diet/Fluid Consistency Regular Communication WNLs Mobility and Gait I Activities of Daily Living and IADL's I Social History Household Members spouse Living Arrangements House Number of Floors (Floors) One Floor Number of Stairs To Enter/Railing? 3 steps and right rail to enter Home Environment Standard Height Toilet Home Equipment Front Wheel Walker,Grab Bars In Shower Employment Status Retired M2 PT-IP Current Condition Start: 10/12/22 09:35 Freq: NEEDED Status: Active Protocol: Document 10/12/22 08:50 MB (Rec: 10/12/22 09:48 MB [id number]) Physical Therapy Current Condition Current Condition Evaluation Date 10/12/22 Treatment Diagnosis R TKA Onset Date 10/11/22 M3 PT-IP Subjective Start: 10/12/22 09:35 Freq: NEEDED Status: Active Protocol: Document 10/12/22 08:50 MB (Rec: 10/12/22 09:48 MB [id number]) Subjective Physical Therapy Visit Type Type Initial Evaluation Visit Start Time 08:50 Visit Stop Time 09:01 Total Visit Minutes 11 Number of AFFILIATE MARKETING COORDINATOR Visits 0 Physical Therapy Visit Comments Patient Comments Pt states that she needs to get back to bed after toileting. She does not feel like she can try steps to prepare for d/c. Patient Goals To go home. Therapy Pain Assessment Pain When Pain Assessed At Rest Pain Present Pain Present Pain Reported Location Right Knee Intensity 4 Scale Used White-Sarah (Faces) Pain Management Techniques Apply Cold M4 PT-IP Mobility and Gait Start: 10/12/22 09:35 Freq: NEEDED Status: Active Protocol: Document 10/12/22 08:50 MB (Rec: 10/12/22 09:48 MB [id number]) PT-Bed Mobility Assessment Rolling Level of Assist Independent Sit to Supine Sit to Supine Independent Scooting Scooting Up and Down in Bed Standby Assistance PT-Transfer Assessment Sit to and From Stand Sit to and from Stand Contact Guard Assistance,1 Person Assistance,Use of Upper Extremities Equipment Transfer Assistive Device Gait Belt,Front Wheeled Walker Orthotic/Prosthetic Devices or Brace: No Gait Assessment Gait Gait Assistance Required: Contact Guard Assist,1 Person Assist Distance (Feet) 10 Able to Maintain Weight Bearing Status Yes During Gait Assistive Devices Assistive Device Gait Belt,Front Wheeled Walker Orthotic/Prosthetic Devices or Brace: No Gait Deviations General Gait Pattern Antalgic,Flexed Trunk Factors Limiting Gait Function Factors Limiting Gait Function Decreased Activity Tolerance, Decreased Strength,Limited Range of Motion,Pain,Poor Balance Comments Gait Comments Pt requires cues not to step with left foot first but to move walker and then right and then left foot with step-to mj given pain and decreased range and strength post-op R TKR last date. Stair Climbing Assessment Comments Stair Climbing Comments Pt states she cannot tolerate stair training on the eval PT-Balance Assessment Sitting Balance and Reactions Static Sitting Balance Ability Good Dynamic Sitting Balance Ability Good Standing Balance and Reactions Static Standing Balance Ability Poor Dynamic Standing Balance Ability Poor Device Used RW M5 PT-IP Objective Assessments Start: 10/12/22 09:35 Freq: NEEDED Status: Active Protocol: Document 10/12/22 08:50 MB (Rec: 10/12/22 09:48 MB [id number]) Orientation Orientation/Cognition Level of Alertness Alert Orientation Name,Age,Birthday,Month,Date, Year,Day of Week,Place, Situation Language Function Ability No Deficits Noted Safety Awareness Decreased Safety Awareness Memory Description No Deficits Noted Gross Range of Motion Lower Extremity ROM Assessment Right Impaired Impairments R knee AROM post-op 5-40 deg in supine Strength Lower Extremity Strength Assessment Right Impaired Ankle Normal Comments Strength Comments Pt cannot tolerate MMT right hip and knee post-op Sensation Assessment Comments Sensation Comments Pt denies paresthesias when asked M6 PT-IP Treatment Start: 10/12/22 09:35 Freq: NEEDED Status: Active Protocol: Document 10/12/22 08:50 MB (Rec: 10/12/22 09:48 MB [id number]) Physical Therapy Treatment Exercises Exercises Ankle Pumps,Gluteal Sets,Quad Sets,Heel Slides Education Education Provided Weight Bearing Status,Post-Op Packet,Safety M7 PT-IP Assessment and Plan Start: 10/12/22 09:35 Freq: NEEDED Status: Active Protocol: Document 10/12/22 08:50 MB (Rec: 10/12/22 09:48 MB [id number]) PT Summary Assessment and Plan Potential Rehabilitation Potential Good Status of Condition at Evaluation Stable Summary Impairments Pain,ROM,Strength,Balance, Transfers,Gait,Activity Tolerance Progress Towards Goals Slow Progress due to Pain Assessment Summary Pt is a 77 y/o female presenting post-op right TKA last date. She presents with decreased right knee ROM and strength, imbalance, decreased activity tolerance and pain this a.m. with PT. Initiated transfer, gait, and ther-ex training in a.m. assessment. Pt up on commode and needing assist to get up upon PT arrival and so BP not taken before assessment. No dizziness when up. Goals Bed Mobility Goal Independent Transfer Goal Independent Gait Goal Independent,Front Wheel Walker Gait Distance 100 Other Goals Pt will ascend and descend 3 steps with right rail ascend and no more than SBA to allow safe home entry. Frequency of Treatment Frequency Of Treatment Twice a Day Treatment Plan Physical Therapy Treatment Plan Bed Mobility Training,Transfer Training,Gait Training, Therapeutic Exercise,Balance Retraining,Post Op Education, Discharge Planning,Hot or Cold Pack Weight Bearing Status Weight Bearing Status Weight Bear as Tolerated Recommendations To Nursing Amount of Assist Needed 1 Person Assist Discharge Recommendations PT Discharge Recommendations Home with 17/10 Assist Available Transportation Needs at Discharge Private Vehicle
[2022-10-12] MEDS: DOCUSATE 100 MG CAPSULE PO (10:11)
[2022-10-12] MEDS: ATORVASTATIN 20 MG TABLET 10 MG PO (10:12)
[2022-10-12] MEDS: ASPIRIN EC 81 MG TABLET PO (10:12)
[2022-10-12] MEDS: MULTIVITAMIN 1 TABLET 1 TAB PO (10:12)
--- NOTE | 2022-10-12 11:13 | PT-IP ANOTE ---
Attempted to see pt for a second visit today to trial stairs prior to discharge, pt was on toilet, will need to do stairs at a later time.
--- NOTE | 2022-10-12 11:28 | OT.IP.EVAL ---
Current Diagnoses Unilateral primary osteoarthritis, right knee (10/11/22) Surgery Performed Operation Date: 10/11/22 13:45 Actual Procedures p Total Knee Arthroplasty-RIGHT(Right) - Eve Kirkpatrick MD Past Medical History (Last Updated 06/06/22 @ 09:33 by Hay Cary MD) Arthritis Eating disorder Hyperlipidemia (05/17/17) Hypertension Iron deficiency anemia Major depression Obesity Osteoarthritis of ankles, bilateral Postmenopausal Raynauds phenomenon Septic olecranon bursitis of left elbow Valgus deformity, not elsewhere classified, right ankle Valgus deformity, not elsewhere classified, right knee Surgical History (Last Updated 10/04/22 @ 13:06 by Sabra Langford RN) History of knee surgery History of orthopedic surgery (05/12/20) S/P cataract extraction (~04/2018) Occupational Therapy Inpatient Evaluation/Re-Eval M1 PT/OT-IP Prior Functional Status Start: 10/12/22 09:35 Freq: NEEDED Status: Active Protocol: Document 10/12/22 08:50 MB (Rec: 10/12/22 09:48 MB [id number]) Medical Review Prior Functional Status Medical History Reviewed Yes Diet/Fluid Consistency Regular Communication WNLs Mobility and Gait I Activities of Daily Living and IADL's I Social History Household Members spouse Living Arrangements House Number of Floors (Floors) One Floor Number of Stairs To Enter/Railing? 3 steps and right rail to enter Home Environment Standard Height Toilet Home Equipment Front Wheel Walker,Grab Bars In Shower Employment Status Retired M1 PT/OT-IP Prior Functional Status Start: 10/12/22 11:59 Freq: NEEDED Status: Active Protocol: Document 10/12/22 11:00 [facility] (Rec: 10/12/22 12:47 [facility] [id number]) Medical Review Prior Functional Status Medical History Reviewed Yes Diet/Fluid Consistency Regular Communication WNLs Mobility and Gait Having go use a SPC or FWW and use of grocery cart while shopping. Activities of Daily Living and IADL's I Social History Household Members spouse Living Arrangements House Number of Floors (Floors) One Floor Number of Stairs To Enter/Railing? 3 steps and right rail to enter Home Environment Standard Height Toilet Home Equipment Front Wheel Walker,Facility Maintenance Mechanic, Grab Bars Near Toilet,Grab Bars In Shower Employment Status Retired M2 OT-IP Current Condition Start: 10/12/22 11:59 Freq: Status: Active Protocol: Document 10/12/22 11:00 [facility] (Rec: 10/12/22 12:47 [facility] [id number]) Occupational Therapy Current Condition Current Condition Evaluation Date 10/12/22 Treatment Diagnosis S/p R TKA M3 OT- IP Subjective and Pain Start: 10/12/22 11:59 Freq: Status: Active Protocol: Document 10/12/22 11:00 [facility] (Rec: 10/12/22 12:47 [facility] [id number]) OT- Subjective Occupational Therapy Visit Type Type Initial Evaluation Visit Start Time 11:00 Visit Stop Time 11:28 Total Visit Minutes 28 Occupational Therapy Visit Comments Patient Comments Pt in the bathroom and able to assist pt back to bed. Patient/Caregiver Goals TO go home. OT Pain Assessment Pain When Pain Assessed At Rest Pain Present Pain Present Pain Reported Location Right Knee Intensity 8 Scale Used Numeric (0 - 10) M4 OT- IP ADL's Start: 10/12/22 11:59 Freq: Status: Active Protocol: Document 10/12/22 11:00 [facility] (Rec: 10/12/22 12:47 [facility] [id number]) OT JIX-Jlwa-Ancgtpy General Evaluation Self-Feeding Ability Independent OT ADL-Grooming Comments OT Grooming Comments Pt states did prior. OT ADL-Oral Care Comments Oral Care Comments Not performed. OT ADL-Dressing Comments OT Dressing Comments Pt states to get her to assist and also educated on use of educational resource center teacher to assist wih her LB dressing needs. OT ADL-Toileting General Evaluation Toileting Ability Standby Assistance Comments OT Toileting Comments SBA for safety and heavy use of grab bar to stand. Pt agrees that she would benefit from use of BSC and use of brief/wipes at night. OT ADL-Bathing Comments OT Bathing Comments Not performed. M5 OT- IP IADL's Start: 10/12/22 11:59 Freq: Status: Active Protocol: Document 10/12/22 11:00 [facility] (Rec: 10/12/22 12:47 [facility] [id number]) OT-Instrumental Activities of Daily Living Deficits IADL Deficits Identified No Deficits Home Safety Awareness Awareness of Need for Assistance at Home Good Awareness Ability to Problem Solve Emergency Able to Problem Solve Situations M6 OT- IP Functional Cognition Start: 10/12/22 11:59 Freq: Status: Active Protocol: Document 10/12/22 11:00 [facility] (Rec: 10/12/22 12:47 [facility] [id number]) Cognitive Factors Limiting Selfcare Function Cognitive Ability Level of Alertness Alert Patient Orientation Name,Age,Birthday,Month,Date, Year,Day of Week,Place, Situation Attention Span Ability Capable of Focused Attention, Capable of Sustained Attention Ability to Follow Commands Able to Follow One Step Commands Safety Awareness Underestimates Need for Assistance Cognitive Comments Cognitive Assessment Comments Pt needing vc to keep the FWW close to her at all time and in front of her before sitting down. M7 OT- IP Mobility and Balance Start: 10/12/22 11:59 Freq: Status: Active Protocol: Document 10/12/22 11:00 [facility] (Rec: 10/12/22 12:47 [facility] [id number]) OT- Bed Mobility Assessment Sit to Supine Sit to Supine Assist Minimal Assistance OT-Transfer Assessment Sit to and From Stand Sit to and from Stand Standby Assistance Transfers Transfer Ability Standby Assistance Technique Transfer Destination Bed,Bedside Commode Transfer Technique Stand Step Pivot Devices Transfer Assistive Devices Gait Belt Orthotic/Prosthetic Devices or Brace: Yes Comments Mobility Comments Pt assist to help get her RLE into and out of bed minimally . SBA with transfer needs and with the FWW to walk into and out of the bathroom. OT- Balance Assessment Sitting Balance and Reactions Static Sitting Balance Ability Good Dynamic Sitting Balance Ability Good Standing Balance and Reactions Static Standing Balance Ability Fair Dynamic Standing Balance Ability Fair M9 OT- IP Assessment and Plan Start: 10/12/22 11:59 Freq: Status: Active Protocol: Document 10/12/22 11:00 [facility] (Rec: 10/12/22 12:47 [facility] [id number]) OT Summary Assessment and Plan Potential Rehabilitation Potential Good Analytic Complexity at Evaluation Low Summary OT Impairments Pain,Balance,Functional Mobility,Dressing,Bathing, Shower Transfers,Activity Tolerance Progress Towards Goals Progressing Toward Goals Assessment Summary Pt low complexity and main barriers are steps and pain. Pt moving well and has good understanding for ADL suggestions for safety and equipment. Pt to go home today with to assist. Goals Grooming Goal Independent Dressing Goal Independent Toileting Goal Independent Bathing Goal Independent Toilet Transfer Goal Independent Shower Transfer Goal Independent Days to Meet Goals 5 Frequency of Treatment Frequency Of Treatment Once a Day Treatment Plan OT Treatment Plan ADL Training,Functional Mobility,Patient/Family Education,Discharge Planning Discharge Recommendations OT Discharge Recommendations Home with Assistance, Outpatient PT Home Equipment Needs BSC
--- NOTE | 2022-10-12 12:25 | CM.DANOTE ---
DCP: Case received, EMR reviewed and met with patient. Introduced self and role. Was able to obtain information regarding patient's baseline activity status prior to her surgery. DCP assessment completed with information currently available. Patient is a 77 year old female who admitted yesterday morning to the care of the orthopedic team. PCP: Dr. Cary. Payer: confirmed: [facility]. Patient came to the hospital via private vehicle for a surgical procedure. Patient had right total knee arthroplasty. Patient has history of severe right knee OA. Met with patient in her room. She is alert, confirmed that she resides with spouse, Jm, here in [place]. She has a FWW for home use. She has been independent at baseline. P: Patient has discharge orders for home today, she will be working with [facility]. Shamika Tate RN/Butt Trimmer Discharge Planning/Care Management CM Discharge Assessment Start: 10/12/22 12:23 Freq: Status: Active Protocol: Document 10/12/22 12:23 (Rec: 10/12/22 12:25 [id number]) Discharge Planning Assessment Assigned Spring Former Machine Shamika Tate RN/Butt Trimmer Advance Directives? No Advance Directives on File No History Provided By Patient,Medical Record Prior Living Arrangements House Household Members spouse Type of transporation used prior to Drives own vehicle admit Independent with ADL's Yes Is patient alert and oriented? Yes Caregiver for Another No DME Already Rented / Owned FWW / Walker Patient/Family Preference OP PT Therapy Barriers to Discharge No Discharge Plan Home Transportation Arrangement Spouse Referrals Initiated None needed Whiteboard Updated in Patient Room with Yes name and ext. # of Spring Former Machine Review Status In Process Next Review Type Continued Stay Review Pre-Anesthesia Assessment Start: 10/04/22 12:48 Freq: Status: Complete Protocol: Document 10/04/22 12:48 CAB (Rec: 10/04/22 13:24 CAB [id number]) Pre-Anesthesia Assessment Preferred Name Azucena Patient Information Reviewed Via Phone Assessment Assessment Completed With Patient Diagnostic Results BMP/CMP,CBC,EKG,Urinalysis Comment Las/EKG @ 09/09/22 Primary Care Provider Hay Cary Seen Specialist in Last 12 Months Yes Specialist Seen Orthopedist,Other Primary Language Chinese Surgical Dressing Maker Required No Height 5 ft 3 in Weight 163 lb Body Mass Index (BMI) 28.8 Hearing Ability Normal Visual Assist Glasses Dentition Type Teeth, Natural Present,Teeth, Broken Barriers to Learning None Hx Anesthesia Reactions No Hx Family Anesthesia Reaction No Hx Malignant Hyperthermia No Hx Blood Transfusions No Hx Blood Transfusion Reaction No Anesthesia Review Requested No Night Nurse No alcohol intake former Smoking Status Never smoker Substance Use Type does not use Pain Present Pain Reported Musculoskeletal Symptoms Abnormal Gait,Difficulty Walking,Joint Pain History of Falling (Recent or History of No ) Patient is completely paralyzed or No completely immobile Prosthesis or Orthotic Device Cane,Front Wheel Walker Mental Status Oriented to own ability Is patient on oxygen? No Does patient have BLACKWELL/SOB No Hx Sleep Apnea No CPAP/BIPAP use not prescribed Currently Taking a Beta Lily No Can You Climb a Flight of Stairs Without No SOB Hx Chest Pain No Hx SOB No Hx Syncope or Dizziness No Anti-Coagulant Therapy No Has a Weatherstrip Machine Operator No Cardiac Testing No Hx Pacemaker/ICD No Pacemaker Rep Required? 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 Received a COVID vaccine? Yes Received all doses? No Marital Status Lives With spouse Current Living Arrangements House Number of Floors (Floors) Two Floors Number of Stairs To Enter/Railing? 3 Support System Spouse Does the Patient Have Assistance After Yes Surgery Patient Discharge Plan Description Return Home Comment Pt advised 1 night length of stay per surgeon Feels Safe in Current Environment Yes Been Physically Hurt or Threatened By a No Person in Current Environment Do you have thoughts of harming yourself None or others? Are you currently considering suicide? No Do you have a plan to hurt yourself or No Plan others? Do You Have Any Spiritual Beliefs That No May Affect Your HC Choices? Do You Have Any Cultural Practices That No May Affect Your HC Choices? Comment Riley Who Can We Speak to About Patient's Care Family, friends Identifying Code for Release of Patient Declines to issue Information Health Care Proxy/Next of Kin Jm () Health Care Proxy Emergency Contact Name Jm () Emergency Contact Advance Directives? No Power of Construction Project Engineer No PAC Instructions Do not shave/clip surgical site,Durable medical equipment ,Medications to take/avoid, Nasal antibiotic,No ETOH/ petroleum product on skin DOS, NPO,Pre-surgical wash,Sensory aids,Sturdy shoes/comfortable clothes,Do not bring valuables and remove jewelry
[2022-10-12] MEDS: OXYCODONE IR 5 MG TABLET PO (13:07)
--- NOTE | 2022-10-12 14:45 | PT.IPTN ---
Current Diagnoses Unilateral primary osteoarthritis, right knee (10/11/22) Surgery Performed Operation Date: 10/11/22 13:45 Actual Procedures p Total Knee Arthroplasty-RIGHT(Right) - Eve Kirkpatrick MD Physical Therapy Treatment Note M2 PT-IP Current Condition Start: 10/12/22 09:35 Freq: NEEDED Status: Discharge Protocol: Document 10/12/22 08:50 MB (Rec: 10/12/22 09:48 MB [id number]) Physical Therapy Current Condition Current Condition Evaluation Date 10/12/22 Treatment Diagnosis R TKA Onset Date 10/11/22 M3 PT-IP Subjective Start: 10/12/22 09:35 Freq: NEEDED Status: Discharge Protocol: Document 10/12/22 16:14 TS (Rec: 10/12/22 16:25 TS [id number]) Subjective Physical Therapy Visit Type Type Treatment Note Visit Start Time 14:45 Visit Stop Time 15:08 Total Visit Minutes 23 Notes Spouse present for caregiver training. Number of OPTIMIZATION ANALYST Visits 1 Physical Therapy Visit Comments Patient Comments Pt agreeable to PT. Patient Goals To go home. Therapy Pain Assessment Pain When Pain Assessed During Mobility Pain Present Pain Present Pain Reported Location Right Knee Intensity 7 Scale Used Numeric (0 - 10) Description Aching,Acute Pain Behaviors Wincing Pain Management Techniques Apply Cold M4 PT-IP Mobility and Gait Start: 10/12/22 09:35 Freq: NEEDED Status: Discharge Protocol: Document 10/12/22 16:14 TS (Rec: 10/12/22 16:25 TS [id number]) PT-Bed Mobility Assessment Supine to Sit Supine to Sit Standby Assistance Scooting Scooting to Edge of Bed Standby Assistance PT-Transfer Assessment Sit to and From Stand Sit to and from Stand Contact Guard Assistance,1 Person Assistance,Use of Upper Extremities Equipment Transfer Assistive Device Gait Belt,Front Wheeled Walker Orthotic/Prosthetic Devices or Brace: Yes Comments Mobility Comments Supine to sit SBA with UE support, slow to move LLE to EOB. Sitting on EOB spouse was educated on proper donningof gait belt and usage. Sit to stand CGA from spouse with FWW , eases into weight bearing on L side. She ambulated ~150' SBA with slow step to gait. She performed stairs x3 CGA from spouse with BUE handrail assist. Pt was brought back to room in w/c. Pt was left sitting EOB with spouse preparing for d/c home. Gait Assessment Gait Gait Assistance Required: Standby Assistance Distance (Feet) 150 Able to Maintain Weight Bearing Status Yes During Gait Assistive Devices Assistive Device Gait Belt,Front Wheeled Walker Orthotic/Prosthetic Devices or Brace: Yes Gait Deviations General Gait Pattern Antalgic,Flexed Trunk Factors Limiting Gait Function Factors Limiting Gait Function Decreased Activity Tolerance, Decreased Strength,Limited Range of Motion,Pain,Poor Balance Comments Gait Comments See mobility comments. Stair Climbing Assessment Evaluation Level of Assist On Stairs Contact Guard Assistance Devices Stair Climbing Assistive Devices Left Railing,Right Railing Technique/Endurance Stair Climbing Direction Ascend and Descend Stair Climbing Technique Step to Step Number of Steps Climbed 3 Comments Stair Climbing Comments See mobility comments. PT-Balance Assessment Sitting Balance and Reactions Static Sitting Balance Ability Good Dynamic Sitting Balance Ability Good Standing Balance and Reactions Static Standing Balance Ability Good Dynamic Standing Balance Ability Fair Device Used FWW M5 PT-IP Objective Assessments Start: 10/12/22 09:35 Freq: NEEDED Status: Discharge Protocol: Document 10/12/22 08:50 MB (Rec: 10/12/22 09:48 MB [id number]) Orientation Orientation/Cognition Level of Alertness Alert Orientation Name,Age,Birthday,Month,Date, Year,Day of Week,Place, Situation Language Function Ability No Deficits Noted Safety Awareness Decreased Safety Awareness Memory Description No Deficits Noted Gross Range of Motion Lower Extremity ROM Assessment Right Impaired Impairments R knee AROM post-op 5-40 deg in supine Strength Lower Extremity Strength Assessment Right Impaired Ankle Normal Comments Strength Comments Pt cannot tolerate MMT right hip and knee post-op Sensation Assessment Comments Sensation Comments Pt denies paresthesias when asked M6 PT-IP Treatment Start: 10/12/22 09:35 Freq: NEEDED Status: Discharge Protocol: Document 10/12/22 16:14 TS (Rec: 10/12/22 16:25 TS [id number]) Physical Therapy Treatment Education Education Provided Weight Bearing Status,Post-Op Packet,Safety M7 PT-IP Assessment and Plan Start: 10/12/22 09:35 Freq: NEEDED Status: Discharge Protocol: Document 10/12/22 16:14 TS (Rec: 10/12/22 16:25 TS [id number]) PT Summary Assessment and Plan Potential Rehabilitation Potential Good Summary Impairments Pain,ROM,Strength,Balance, Transfers,Gait,Activity Tolerance Progress Towards Goals Progressing Toward Goals Assessment Summary Pt is progressing well with her mobility. She was SBA for all bed mobility and CGA for sit to stands. She ambulated ~ 150' SBA with slow step to gait, no buckling or LOB. She performed stairs CGA with BUE handrail assist. PT is recommending return home with 24/7 spouse for assist. Goals Bed Mobility Goal Independent Transfer Goal Independent Gait Goal Independent,Front Wheel Walker Gait Distance 100 Other Goals Pt will ascend and descend 3 steps with right rail ascend and no more than SBA to allow safe home entry. Frequency of Treatment Frequency Of Treatment Twice a Day Treatment Plan Physical Therapy Treatment Plan Bed Mobility Training,Transfer Training,Gait Training, Therapeutic Exercise,Balance Retraining,Post Op Education, Discharge Planning,Hot or Cold Pack Weight Bearing Status Weight Bearing Status Weight Bear as Tolerated Recommendations To Nursing Amount of Assist Needed 1 Person Assist Discharge Recommendations PT Discharge Recommendations Home with 24/7 Assist Available Transportation Needs at Discharge Private Vehicle
--- NOTE | 2022-10-12 15:57 | PC.NURSE ---
Pt discharged home at 1550, escorted off floor in wheelchair, accompanied by spouse and hospital staff. IV removed, discharge teaching reviewed including follow up appointments and worsening symptoms. Questions answered. All belongings left floor with patient.
== END 2022-10-12 15:59 | disposition home or self-care (01) ==
LOC: OR 11:23 → AC 14:20
PROVIDERS: PCP Internal Medicine; Referring Provider Internal Medicine; Visit Provider Orthopaedic Surgery
PROC: 0SRC0JZ Replacement of Right Knee Joint with Synthetic Substitute, Open Approach (ICD-10-PCS; CPT 27447; principal; 2022-10-11 13:45)
DX: M17.11 Unilateral primary osteoarthritis, right knee (principal); M21.061 Valgus deformity, not elsewhere classified, right knee; E66.9 Obesity, unspecified; Z68.28 Body mass index [BMI] 28.0-28.9, adult; F19.20 Other psychoactive substance dependence, uncomplicated; Z79.82 Long term (current) use of aspirin; F32.A Depression, unspecified
CPT/HCPCS: 27447; 36415; 73560; 85014; 85018; 97116; 97161; 97165; 97530; 97535; C1776; C9290; J0171; J0690; J2704; J3010; J3490

== ENCOUNTER → 2023-06-02 11:06 | Outpatient (CLI) | payer MEDICARE, SELFPAY ==
[2022-10-11 14:45] VITALS: BMI 29.9
[2023-06-02 11:45] LABS: Alanine Aminotransferase 16 IU/L (<35); Albumin 4.2 g/dL (3.5-5.0); Albumin Globulin Ratio 1.4 (1.0-2.8); Alkaline Phosphatase 108 U/L (38-126); Aspartate Aminotransferase 25 IU/L (14-36); BUN Creatinine Ratio 27.8 (6-22); Bilirubin Total 0.5 mg/dL (0.2-1.3); Blood Urea Nitrogen 20 mg/dL (7-17); Calcium 9.4 mg/dL (8.4-10.2); Carbon Dioxide 28 mmol/L (22-32); Chloride 106 mmol/L (98-107); Cholesterol 148 mg/dL (140-199); Estimated Glomerular Filt Rate > 60 mL/min (>60); Glucose 102 mg/dL (80-110); HDL Cholesterol 60 mg/dL (40-60); HEMOLYSIS < 15 (0-50); LDL Cholesterol Calculated 69 mg/dL (<100); Potassium 4.4 mmol/L (3.4-5.1); Sodium 140 mmol/L (137-145); Total Protein 7.2 g/dL (6.3-8.2); Triglycerides 93 mg/dL (35-150)
== END ==
PROVIDERS: PCP Internal Medicine; Referring Provider Internal Medicine; Visit Provider Internal Medicine
DX: I10 Essential (primary) hypertension (principal); E78.5 Hyperlipidemia, unspecified
CPT/HCPCS: 36415; 80053; 80061

== ENCOUNTER → 2023-12-19 14:05 | Outpatient (CLI) | payer MEDICARE, SELFPAY ==
[2022-10-11 14:45] VITALS: BMI 29.9
[2023-12-19 15:30] LABS: Add Manual Diff / Slide Review NO; Basophils Absolute Auto 100 /uL (0-100); Basophils Percent Auto 1.2 % (0-2); Eosinophils Absolute Auto 200 /uL (0-450); Eosinophils Percent Auto 2.4 % (2-4); Hematocrit 36.1 % (36-46); Lymphocytes Absolute Auto 1200 /uL (1100-4500); Lymphocytes Percent Auto 15.5 % (25-40); Mean Corpuscular HGB Conc 33.3 % (30-36); Mean Corpuscular Hemoglobin 30.8 PG (26-34); Mean Corpuscular Volume 92.5 fL (80-100); Monocytes Absolute Auto 500 /uL (0-900); Monocytes Percent Auto 6.7 % (3-14); Neutrophils Absolute Auto 5500 /uL (1500-7000); Neutrophils Percent Auto 74.2 % (50-75); Platelet Count 311 X10^3/uL (150-400); Red Cell Distribution Width 14.2 % (11.6-14.8); White Blood Cell Count 7.5 X10^3/uL (4.5-11.0)
[2023-12-19 15:56] LABS: Alanine Aminotransferase 16 IU/L (<35); Albumin 4.3 g/dL (3.5-5.0); Albumin Globulin Ratio 1.4 (1.0-2.8); Alkaline Phosphatase 105 U/L (38-126); Aspartate Aminotransferase 34 IU/L (14-36); BUN Creatinine Ratio 37.8 (6-22); Bilirubin Total 0.4 mg/dL (0.2-1.3); Blood Urea Nitrogen 31 mg/dL (7-17); Calcium 9.9 mg/dL (8.4-10.2); Carbon Dioxide 27 mmol/L (22-32); Chloride 102 mmol/L (98-107); Estimated Glomerular Filt Rate > 60 mL/min (>60); Globulin 3.1 g/dL (1.7-4.1); Glucose 93 mg/dL (80-110); HEMOLYSIS < 15 (0-50); Sodium 137 mmol/L (137-145); Total Protein 7.4 g/dL (6.3-8.2)
[2023-12-19 16:26] LABS: TSH w/ Reflex to FT4 1.51 uIU/mL (0.47-4.68)
== END ==
LOC: LAB 14:05
PROVIDERS: PCP Internal Medicine; Referring Provider Internal Medicine; Visit Provider Internal Medicine
DX: I10 Essential (primary) hypertension (principal); E78.5 Hyperlipidemia, unspecified; D64.9 Anemia, unspecified; E03.9 Hypothyroidism, unspecified
CPT/HCPCS: 80053; 84443; 85025

== ENCOUNTER → 2024-06-17 10:20 | Outpatient (CLI) | payer MEDICARE, SELFPAY ==
[2022-10-11 14:45] VITALS: BMI 29.9
[2024-06-17 11:39] LABS: Alanine Aminotransferase 18 IU/L (<35); Albumin 4.7 g/dL (3.5-5.0); Albumin Globulin Ratio 1.8 (1.0-2.8); Alkaline Phosphatase 116 U/L (38-126); Aspartate Aminotransferase 30 IU/L (14-36); BUN Creatinine Ratio 32.9 (6-22); Bilirubin Total 0.5 mg/dL (0.2-1.3); Blood Urea Nitrogen 24 mg/dL (7-17); Calcium 10.2 mg/dL (8.4-10.2); Carbon Dioxide 25 mmol/L (22-32); Chloride 106 mmol/L (98-107); Cholesterol 160 mg/dL (140-199); Estimated Glomerular Filt Rate > 60 mL/min (>60); Globulin 2.6 g/dL (1.7-4.1); Glucose 108 mg/dL (80-110); HDL Cholesterol 68 mg/dL (40-60); HEMOLYSIS < 15 (0-50); LDL Cholesterol Calculated 75 mg/dL (<100); Potassium 4.4 mmol/L (3.4-5.1); Sodium 142 mmol/L (137-145); Total Protein 7.3 g/dL (6.3-8.2); Triglycerides 85 mg/dL (35-150)
== END ==
PROVIDERS: PCP Internal Medicine; Referring Provider Internal Medicine; Visit Provider Internal Medicine
DX: E78.2 Mixed hyperlipidemia (principal); I10 Essential (primary) hypertension
CPT/HCPCS: 36415; 80053; 80061

== ENCOUNTER → 2024-10-01 11:44 | Outpatient (CLI) | payer MEDICARE, SELFPAY ==
[2022-10-11 14:45] VITALS: BMI 29.9
--- NOTE | 2024-10-01 11:46 | DI.RAD.S_ITS ---
PROCEDURE: XR TIBIA FIBULA LT 2V INDICATIONS: Rule out occult or pathologic fracture TECHNIQUE: 2 views of the tibia and fibula were acquired. COMPARISON: [facility], CR, XR TIBIA FIBULA LT 2V, 10/25/2021, 12:06. FINDINGS: Remote healed fracture of the left fibula distal diaphysis is again noted unchanged. Severe [id number] configuration changes with joint space narrowing, osteophytes, heterotopic calcifications, exuberant osteophytes at the tibiotalar, subtalar, talonavicular joint similar to the prior exam possible Charcot foot or other process, unchanged. Medial bowing of the distal fibula diaphysis is again noted unchanged. Degenerative changes of the left knee partially imaged unchanged. Several well corticated calcific densities are noted anterior to the mid tibia diaphysis on the lateral image measuring up to 7 mm commonly phleboliths or other calcifications, unchanged. No gross radiographic evidence of acute fracture or osseous lytic or blastic lesion. IMPRESSION: Severe [id number] configuration at the left ankle unchanged. Medial bowing deformity of the distal left fibula diaphysis unchanged. Other findings as above. If symptoms persist or worsen, or there is high clinical suspicion of left lower leg abnormality, MRI could be performed. Dictated by: William Corbett M.D. on 10/01/2024 at 12:41 Approved by: William Corbett M.D. on 10/01/2024 at 12:49
== END ==
PROVIDERS: PCP Internal Medicine; Referring Provider Chiropractor; Visit Provider Chiropractor
DX: M85.872 Other specified disorders of bone density and structure, left ankle and foot (principal); M21.862 Other specified acquired deformities of left lower leg; M79.605 Pain in left leg
CPT/HCPCS: 73590

== ENCOUNTER → 2024-12-13 10:37 | Outpatient (CLI) | payer MEDICARE, SELFPAY ==
[2022-10-11 14:45] VITALS: BMI 29.9
[2024-12-13 11:39] LABS: Alanine Aminotransferase 16 IU/L (<35); Albumin 4.2 g/dL (3.5-5.0); Albumin Globulin Ratio 1.7 (1.0-2.8); Alkaline Phosphatase 106 U/L (38-126); Blood Urea Nitrogen 23 mg/dL (7-17); Calcium 9.3 mg/dL (8.4-10.2); Carbon Dioxide 30 mmol/L (22-32); Chloride 103 mmol/L (98-107); Cholesterol 167 mg/dL (140-199); Estimated Glomerular Filt Rate > 60 mL/min (>60); Globulin 2.5 g/dL (1.7-4.1); Glucose 99 mg/dL (70-99); HDL Cholesterol 67 mg/dL (40-60); HEMOLYSIS < 15 (0-50); Potassium 4.5 mmol/L (3.4-5.1); Sodium 138 mmol/L (137-145); Total Protein 6.7 g/dL (6.3-8.2); Triglycerides 100 mg/dL (35-150)
== END ==
PROVIDERS: PCP Internal Medicine; Referring Provider Internal Medicine; Visit Provider Internal Medicine
DX: I10 Essential (primary) hypertension (principal); E78.5 Hyperlipidemia, unspecified
CPT/HCPCS: 36415; 80053; 80061